=== PATIENT | female | born 1945 | race Caucasian/White ===

== ENCOUNTER → 2016-05-07 | Outpatient (CLI) | payer OTHER ==
[~2016-05-07] MED LIST: CHOL1000 PO; ENOX80IN SQ; METH10TA6 PO; METO50TA16 PO; OXYC-57 PO; WARF2.5T8 PO; WARF5TAB7 PO
[2016-05-07 13:45] LABS: BLOOD UREA NITROGEN 24 mg/dl (7-18); GLUCOSE 90 mg/dl (70-99)
[2016-05-07 13:46] LABS: ALT/SGPT 14 U/L (12-78); AST/SGOT 16 U/L (15-37); BUN/CREATININE RATIO 18.2 (10-20); CALCIUM 9.1 mg/dl (8.5-10.1); CARBON DIOXIDE 27 mmol/L (21-32); CHLORIDE 110 mmol/L (98-107); CHOLESTEROL 204 mg/dl (0-200); SODIUM 147 mmol/L (136-145); TRIGLYCERIDES 142 mg/dl (0-150); VERY LOW DENSITY LIPOPROT CALC 28 mg/dl
[2016-05-07 13:49] LABS: CHOLESTEROL/HDL RATIO 4.1; HDL CHOLESTEROL 50 mg/dl; LDL CHOLESTEROL CALCULATED 126 mg/dl
--- NOTE | 2016-05-11 10:12 | CODING QUERY MEDICAL NECESSITY ---
SUPPORTING DIAGNOSIS NEEDED A supporting diagnosis is required for the test/procedure performed on this patient in order for us to be reimbursed by the patient's insurance. Please provide a supporting diagnosis for the following test/procedure listed below next to the test name along with your signature. *If there is no additional diagnosis for this patient that would support the following test/procedure please document that below next to the test/procedure. Test(s)/Procedure(s) that require a supporting diagnosis: * VIT B-12 LEVEL DIAGNOSIS: * FOLATE LEVEL DIAGNOSIS: * DOS: 05/07/16 Provider Signature: Date: Thank you Monse Rojo Health Information Management Once completed, please kindly fax back to [phone] For questions please call [phone]
== END | disposition home or self-care (01) ==
LOC: C.LABMFLN 08:41
PROVIDERS: ATTEND Family Medicine
DX: I10 Essential (primary) hypertension (principal); E55.9 Vitamin D deficiency, unspecified; I82.509 Chronic embolism and thrombosis of unspecified deep veins of unspecified lower extremity; E05.90 Thyrotoxicosis, unspecified without thyrotoxic crisis or storm; G62.9 Polyneuropathy, unspecified; D64.9 Anemia, unspecified

== ENCOUNTER → 2016-10-10 | Outpatient (CLI) | payer OTHER ==
[2016-10-10 13:08] LABS: INR 3.3 (0.9-1.1); PROTHROMBIN TIME (PATIENT) 36.7 SECONDS (9.0-12.0)
[2016-10-10 13:52] LABS: BLOOD UREA NITROGEN 19 mg/dl (7-18); BUN/CREATININE RATIO 14.8 (10-20); CALCIUM 8.9 mg/dl (8.5-10.1); CARBON DIOXIDE 26 mmol/L (21-32); CHLORIDE 111 mmol/L (98-107); GLUCOSE 90 mg/dl (70-99); POTASSIUM 3.7 mmol/L (3.5-5.1); SODIUM 146 mmol/L (136-145)
[2016-10-10 14:17] LABS: CHOLESTEROL 169 mg/dl (0-200); CHOLESTEROL/HDL RATIO 4.8; HDL CHOLESTEROL 35 mg/dl; LDL CHOLESTEROL CALCULATED 99 mg/dl; THYROID STIMULATING HORMONE 0.161 uIu/ml (0.300-4.500); TRIGLYCERIDES 175 mg/dl (0-150); VERY LOW DENSITY LIPOPROT CALC 35 mg/dl
--- NOTE | 2016-10-16 09:39 | CODING QUERY MEDICAL NECESSITY ---
SUPPORTING DIAGNOSIS NEEDED A supporting diagnosis is required for the test/procedure performed on this patient in order for us to be reimbursed by the patient's insurance. Please provide a supporting diagnosis for the following test/procedure listed below next to the test name along with your signature. *If there is no additional diagnosis for this patient that would support the following test/procedure please document that below next to the test/procedure. Test(s)/Procedure(s) that require a supporting diagnosis: * VITAMIN D, 25-HYDROXY DIAGNOSIS: Provider Signature: Date: Thank you Francoise Oates [employer] Once completed, please kindly fax back to [phone] For questions please call [phone]
== END | disposition home or self-care (01) ==
LOC: C.LABMFLN 10:00
PROVIDERS: ATTEND Physician Assistant
DX: I10 Essential (primary) hypertension (principal); I82.509 Chronic embolism and thrombosis of unspecified deep veins of unspecified lower extremity; E78.5 Hyperlipidemia, unspecified; I80.00 Phlebitis and thrombophlebitis of superficial vessels of unspecified lower extremity; R82.90 Unspecified abnormal findings in urine; E55.9 Vitamin D deficiency, unspecified

== ENCOUNTER → 2016-11-14 | Outpatient (CLI) | payer OTHER ==
[2016-11-14 13:49] LABS: THYROID STIMULATING HORMONE 1.23 uIu/ml (0.300-4.500)
== END | disposition home or self-care (01) ==
LOC: C.LABMFLN 10:50
PROVIDERS: ATTEND Family Medicine
DX: E78.5 Hyperlipidemia, unspecified (principal); I82.509 Chronic embolism and thrombosis of unspecified deep veins of unspecified lower extremity

== ENCOUNTER → 2016-11-26 | Outpatient (CLI) | payer OTHER ==
--- NOTE | 2016-11-26 14:46 | MAMMOGRAPHY REPORT ---
BILATERAL DIGITAL DIAGNOSTIC MAMMOGRAM TOMOSYNTHESIS WITH CAD AND TARGETED BILATERAL ULTRASOUND: 2016 CLINICAL HISTORY: 71-year-old woman presents for annual bilateral mammograms and also a new area of p ain and thickening in the 10:00 to 11:00 left breast. She reports dull/aching intermittent focal earl n in the left 11:00 axis for one month or less, and the area of thickening for around 1 week. No ski n erythema or nipple discharge. No family history of breast cancer. TECHNIQUE: Bilateral breast tomosynthesis in addition to standard 2D mammography was performed. Curre nt study was also evaluated with a Computer Aided Detection (CAD) system. COMPARISON: Comparison is made to exams dated: 06/15/2015 mammogram - [facility], mammogram, 05/26/2013 mammogram - [facility], 11/10/2008 mammogram, 11/11/2007 mammogram, and 10/25/2005 mammogram - [facility]. BREAST COMPOSITION: There are scattered areas of fibroglandular density in both breasts. FINDINGS: A triangular skin palpable marker overlies the 11:00 middle to posterior left breast, desire ting the focal pain and thickening pointed out by the patient. There is no obvious new mass, archite ctural distortion or cluster of microcalcifications in the left breast near the area of concern or el sewhere throughout the remainder of the breast. There are a few benign coarse popcorn and rim calcif ications. There are scattered benign-appearing round and punctate microcalcifications in the right breast. A l obulated, 18 x 8 mm mass in the lower outer middle one third of the right breast is stable comparing back to the 2015, 2013 and 2011 mammograms. However, there is a new focal asymmetry measuring 9 x 14 mm in the upper outer middle one third of the right breast, for which further evaluation with ultras ound was performed. There is possible associated architectural distortion on the CC tomosynthesis im ages. No associated microcalcification. No other obvious mass, asymmetry, distortion or suspicious calcifications are seen throughout the remainder of the right breast. Targeted ultrasound was performed in the area of concern pointed out by the patient, within the 10:30 left breast, 6-7 cm from the nipple. There is sonographically normal tissue without evidence of a d iscrete solid or cystic mass. In the right 9:00 breast, 5 cm from the nipple, there is a taller than wide hypoechoic solid mass with indistinct borders measuring approximately 8.6 x 6.2 x 9.6 mm. This corresponds in shape and location as the mammographic asymmetry and is suspicious for malignancy. D efinitive characterization with ultrasound guided core biopsy is recommended. In the 8:00 right breast, 7 cm from the nipple, there is a grouping of anechoic cyst versus focal narinder t ectasia, measuring approximately 1.7 x 0.7 x 3.3 cm. This likely correlates with the stable asymme try in the lower outer middle one third of the right breast. IMPRESSION: ACR BI-RADS CATEGORY 4C: MODERATE SUSPICION FOR MALIGNANCY, TARGETED ULTRASOUND ACR BI-R ADS CATEGORY 4C: MODERATE SUSPICION FOR MALIGNANCY 1. Ultrasound guided core biopsy is recommended for a hypoechoic solid taller than wide mass with in distinct borders measuring 9.6 mm in the 9:00 right breast, thought to correlate with the new focal m ammographic asymmetry. 2. There is no suspicious mammographic or targeted sonographic abnormality in the 10:30 to 11:00 lef t breast, to correlate with the focal pain and thickening pointed out by the patient. Therefore, cli nical follow-up is recommended, as biopsy of a clinically suspicious mass should not be precluded by negative imaging. 3. A stable asymmetry versus partially circumscribed mass in the lower outer middle one third of the right breast is thought to correlate with a grouping of anechoic benign cyst versus benign focal narinder t ectasia in the 8:00 right breast on ultrasound. These results and recommendations were discussed with the patient at the time of the exam. She shoul d remain on Coumadin as per usual prior to the biopsy. Approximately 10% of breast cancers are not detected with mammography. A negative mammographic report should not delay biopsy if a clinically suggestive mass is present. Deandra Armenta M.D. ay/:11/26/2016 10:13:04 Clinical Researcher: Jennifer HOOKER(Edis)(Paolo), [facility] letter sent: Abnormal 4/5 BI-RADS Code: ACR BI-RADS Category 4C: Moderate Suspicion For Malignancy Ultrasound BI-RADS: ACR BI- RADS Category 4C: Moderate Suspicion For Malignancy
== END | disposition home or self-care (01) ==
LOC: C.MAMM 09:23
PROVIDERS: ATTEND Family Medicine
DX: N63 Unspecified lump in breast (principal)

== ENCOUNTER → 2016-12-03 | Outpatient (CLI) | payer OTHER ==
--- NOTE | 2016-12-03 09:43 | Discharge Instructions ---
Discharge Instructions Procedure Procedure Date: Dec 03, 2016. Reason for visit: Right Mass. Discharge Discharge Date: Dec 03, 2016. Discharge Diagnosis: post right breast ultrasound guided core biopsy Medications Restart Stopped Medication(s): Continue Coumadin as per usual Instructions Activity Recommendations: Additional Limitations (see below) Return to School/Work: no limitations Recommended Home Diet: No Limitations Provider Instructions: ACTIVITY RECOMMENDATIONS: * No lifting, pushing, pulling or exercising the affected side for three days. RETURN TO SCHOOL/WORK: * You may return to work/school after the procedure, but do not perform any strenuous activities for 24 to 48 hours. MEDICATIONS: * Tylenol (two 325 mg) every four to six hours if needed for mild pain (if not allergic to Tylenol). DIET: * Resume previous diet. SPECIAL CARE INSTRUCTIONS: * Keep biopsy site dry for 24 hours. May shower after 24 hours, but do not soak (bathe) incision. * May remove Tegaderm (plastic patch) tomorrow AFTER showering. * Leave the steri-strips on for one week. Allow the steri-strips to fall off by themselves. If not off after one week, you may remove them. You may place a Bandaid crosswise over the strips, if desired. * Apply ice 10 minutes on and 10 minutes off as needed. * Wear a bra at bedtime to sleep more comfortably for 2-3 days. * Your referring physician should have the results after approximately 5 to 7 business days. * Call for unusual bleeding, fever, drainage, etc or if you have any questions call [phone] during normal business hours or after hours call Dr Armenta, . FOLLOW UP VISIT: Follow-up with Referring Physician as scheduled. Allergies Uncoded Allergies: CONTROL PILLS (Allergy, Unknown, DVT, 11/21/16) Brandon Angeles Recommendations: Call your doctor if: * Temperature above 101 degrees * Pain not relieved by pain medicine ordered * There is increased drainage or redness from any incision * You have any unanswered questions or concerns. Your Doctors Instructions noted above were prepared by provider Deandra Armenta. Patient Signature Section: Patient Instructions Signature Page Bree Weller Patient (or Guardian) Signature/Date: I have read and understand the instructions given to me by my caregivers. Caregiver/RN/Doctor Signature/Date: The above-named patient and/or guardian has received patient instructions on this date. + Original Patient Signature Page (only) stays with chart. Please make copy for patient.
--- NOTE | 2016-12-03 14:32 | MAMMOGRAPHY REPORT ---
THIS REPORT HAS BEEN AMENDED. ULTRASOUND GUIDED BIOPSY RIGHT BREAST: 12/03/2016 CLINICAL HISTORY: Suspicious hypoechoic solid mass/focal asymmetry in the 9:00 right breast. Patient presents for ultrasound guided core biopsy. COMPARISON: Comparison is made to exams dated: 11/26/2016 ultrasound, 11/26/2016 mammogram, 06/15/2015 ma mmogram - [facility], 05/26/2013 mammogram, 05/26/2013 mammogram - [facility], and mammogram - [facility]. PATIENT CONSENT: The procedure, risks and benefits were discussed with the patient and informed conse nt was obtained both verbally and in writing. Specific risks to this procedure include: bleeding, in fection, puncture of adjacent structure, nontarget biopsy, sampling error, pain, metal allergy and me dication reaction. PROCEDURE DESCRIPTION: A time out was performed and the right breast was agreed as the site of biopsy . The skin was prepped and draped in the usual sterile fashion. The hypoechoic solid mass in the 9:00 right breast was chosen as the target for biopsy. Subcutaneous and intraparenchymal 1% buffered lido maria esther, with and without epinephrine, was administered as local anesthesia. A skin incision was made. Through the incision, 5 samples were taken with a 14 gauge Achieve biopsy device. A ribbon shaped me tallic marker was placed at the biopsy site. Hemostasis was achieved after manual compression. The pa tient tolerated the procedure well and there was no immediate complication. The samples were sent to the pathology department in an appropriately labeled container. After the biopsy in the right 9:00 breast, repeat targeted ultrasound was performed in the 10:00 left breast in the area of pain and mass pointed out by the patient. Should be noted that the patient wa s no longer able to feel the mass but pointed out the area of previous pain. Postprocedure right CC and ML tomosynthesis images were obtained. A new ribbon-shaped metallic biops y marker is seen in the 9:00 middle one third of the right breast, aligning with the focal asymmetry in question. There is mild 1 cm hematoma at the biopsy site. IMPRESSION: ULTRASOUND GUIDED BIOPSY 1. Status post ultrasound-guided core biopsy of an indeterminate mass/focal asymmetry in the 9:00 ri ght breast, with biopsy marker placed at the site. 2. The patient is no longer able to feel the lump in the 10:00 left breast but was able to point out the area of pain and where the lump was previously located. Ultrasound was again negative/normal an d not location. However, the patient reported that her physician would also like this area sampled. I discussed that imaging remains negative in the area of concern, therefore it would not be amenable to image guided biopsy. Could consider fine-needle aspiration based on palpation in the pathology d epartment. 3. The patient will receive notification of the biopsy results from her referring physician. Deandra Armenta M.D. ay/:12/03/2016 10:03:12 Spooler Operator: Nidia PADILLA (R)), [facility] AMENDMENT: 12/12/2016 Deandra Armenta M.D. 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 It contains both ductal and lobular features. The pathology results are concordant with the imaging appearance. Would also consider fine-needle aspiration based on palpation in the pathology department, if the pat ient can still palpate any abnormality in the upper inner quadrant of the left breast. It should be noted that no new new suspicious mammographic or sonographic findings were identified in this area on prior diagnostic workup.
--- NOTE | 2016-12-03 14:32 | MAMMOGRAPHY REPORT ---
UNILATERAL RIGHT DIGITAL DIAGNOSTIC MAMMOGRAM TOMOSYNTHESIS: 12/03/2016 CLINICAL HISTORY: Status post ultrasound guided core biopsy of a suspicious focal asymmetry/mass in t he 9:00 right breast. Please refer to the report from right breast ultrasound guided core biopsy performed at the same time for full detail. IMPRESSION: POST PROCEDURE IMAGING FOR MARKER PLACEMENT Please refer to the report from right breast ultrasound guided core biopsy performed at the same time for full detail. Approximately 10% of breast cancers are not detected with mammography. A negative mammographic report should not delay biopsy if a clinically suggestive mass is present. Deandra Armenta M.D. ay/:12/03/2016 09:44:38 Skirt Trimmer: Nidia KAISER)(Paolo), [facility] BI-RADS Code: Post Procedure Imaging For Marker Placement
== END | disposition home or self-care (01) ==
LOC: C.MAMM 08:40
PROVIDERS: ATTEND Family Medicine
DX: R92.8 Other abnormal and inconclusive findings on diagnostic imaging of breast (principal); N63 Unspecified lump in breast; C50.911 Malignant neoplasm of unspecified site of right female breast

== ENCOUNTER → 2016-12-10 | Day surgery (SDC) | payer OTHER ==
[2016-11-21 13:10] VITALS: Ht 170.2 cm; Wt 86.4 kg
[~2016-12-10] VITALS: Ht 170.2 cm; Wt 86.4 kg
[~2016-12-10] MED LIST changes: +500ML BSS 0.3ML EPI 1:1000PF IRRIG ONE; +ACETAMINOPHEN 325 MG TAB PO PRN; +AMVISC PLUS 0.8ML SYRINGE INT OCU ONE; +ATROPINE SULFATE 0.1 MG/ML 5ML SYR IV PRN; +BRIMONIDINE TART 0.2% OP SOLN PER DROP CHARGE ONE; +BSS FLUSH ONE; +ENDOCOAT 0.85ML SYRINGE INT OCU ONE; +EpHEDrine SULFATE INJ 50 MG/ML AMP IV PRN; +EpINEphrine INJ 1MG/ML AMP 1 MG/ML AMP ONE; +FENTANYL CITRATE INJ 50 MCG/1 ML 2 ML VIAL ONE; +LACTATED RINGER'S 1000ML 500 ML IV SCH; +LIDOCAINE 4% OP SOLN DROP CHARGE ONE; +LIDOCAINE 4% OP SOLN DROP CHARGE OPR SCH; +LIDOCAINE HCL 1% MPF 2 ML VIAL ONE; +MIDAZOLAM HCL 1 MG/ML 2ML VIAL ONE; +MOXIFLOXACIN OPH SOLN PER DROP CHARGE ONE; +ONDANSETRON INJ 2 MG/ML 2 ML VIAL IV PRN; +POVIDONE-IODINE OP SOLN 30 ML BTL ONE; +PROPARACAINE 0.5% OP SOLN PER DROP CHARGE OPR SCH; +TOBRAMYCIN/DEXAMETHASONE OPH OINT PER APPLN CHARGE ONE
[2016-12-10] MEDS: PHENYLEPHRINE HCL 2.5% OP SOLN PER DROP CHARGE OPR SCH ×2 (08:21→08:26)
[2016-12-10] MEDS: TROPICAMIDE 1% OP SOLN PER DROP CHARGE OPR SCH ×2 (08:22→08:27)
[2016-12-10] MEDS: CYCLOPENTOLATE HCL 1% OP SOLN PER DROP CHARGE OPR SCH ×2 (08:23→08:28)
[2016-12-10] MEDS: KETOROLAC 0.5% OP SOLN PER DROP CHARGE OPR SCH ×2 (08:24→08:29)
[2016-12-10] MEDS: MOXIFLOXACIN OPH SOLN PER DROP CHARGE OPR SCH ×2 (08:25→08:35)
--- NOTE | 2016-12-10 08:38 | History & Physical Bridge - SC ---
H&P Re-Evaluation Bridge Note: I have examined the patient, reviewed the History & Physical and in the interval since the performance of the History & Physical I have noted the following changes of clinical significance: Patient recently diagnosed with breast cancer
[2016-12-10 09:32] VITALS: TEMP 36.5
--- NOTE | 2016-12-10 09:32 | Discharge Instructions-SurgCtr ---
Discharge Instructions Date of Service Dec 10, 2016. Visit Reason for Visit: Cataract Right Eye Discharge Discharge Diagnosis / Problem: cataract right eye Discharge Goals Goal(s): Improve function Activity Recommendations Activity Limitations: per Instructions/Follow-up section Lifting Limitations: no more than 5 pounds Anesthesia . Post Anesthesia Instructions: If you have had General Anesthesia or IV Sedation: * Do not drive today. * Resume driving when surgeon permits. * Do not make important decisions or sign legal documents today. * Call surgeon for: 1. Temperature elevations greater than 101 degrees F. 2. Uncontrollable pain. 3. Excessive bleeding. 4. Persistent nausea and vomiting. 5. Medication intolerance (nausea, vomiting or rash). * For nausea and vomiting use only clear liquids such as: tea, soda, bouillon until nausea subsides, then gradually increase diet as tolerated. * If you have any concerns or questions, call your surgeon's office. If physician is unavailable and it is an emergency, call 911 or go to the nearest emergency room. . Instructions / Follow-Up Instructions / Follow-Up ACTIVITY RECOMMENDATIONS: * Light activities * You may walk outside, read, watch television. * Mild irritation and blurred vision are common for the first few days, redness around the white part of the eye is common. MEDICATIONS: Resume previous medications unless instructed otherwise by your surgeon. Eye drops (today and tomorrow): Cipro - one drop in operative eye every 2 hours while awake Prednisolone 1% - one drop in operative eye every 2 hours while awake Ketorolac - one drop in operative eye every 2 hours while awake SPECIAL CARE INSTRUCTIONS: * If any problems or concerns, please call Dr. Dangelo's office at . * Keep plastic shield taped over eye to sleep at night. * Keep plastic shield taped over eye except to administer eye drops. * Keep plastic shield on until office visit the following day. FOLLOW UP VISIT: Follow-up with Dr. Dangelo in the [place] office as scheduled. If not already scheduled, please call the office at . Diet Recommendations Home Diet: resume previous diet Procedures Procedures Performed: Right Cataract Phacoemulsification With Intraocular Lens Implant Pending Studies Studies pending at discharge: no Medical Emergencies . Who to Call and When: Medical Emergencies: If at any time you feel your situation is an emergency, please call 911 immediately. . Non-Emergent Contact Non-Emergency issues call your: Format Proofreader . . "Provider Documentation" section prepared by Kevyn Dangelo. .
--- NOTE | 2016-12-10 09:33 | [facility] Operative Report ---
Operative Report Operative Date Dec 10, 2016. Pre-Operative Diagnosis Cataract Right Eye Post-Operative Diagnosis same as preop Procedure(s) Performed Right Cataract Phacoemulsification With Intraocular Lens Implant Surgeon Dr. Dangelo Philatelic Consultant Surgeon(s) none Estimated Blood Loss 0ml Findings cataract right eye Fluids (cc crystalloids) see anesthesia record Specimens none Drains none Anesthesia loacl with sedation Complication(s) None Disposition Recovery Room / PACU Implants mx60 21.0 Indications decreased vision right eye Description of Procedure After informed consent was obtained in the holding area the patient was wheeled back to the operating room where cardiac monitoring leads and oxygen by nasal cannula was administered by Anesthesia. Gentle IV sedation was given, and the patient's right eye was prepped and draped in usual sterile fashion. A wire lid speculum was placed into the right eye and the operating microscope was swung into position. Using 0.12 forceps and a Supersharp blade a paracentesis port was made 2 o'clock hours away from the 9 o'clock position of the patient's right eye. 1% non-preserved Lidocaine was then injected into the anterior chamber for anesthesia. A 2.0 mm keratotome blade was then used to make a shelved clear corneal incision at the 9 o'clock position of the right eye. Amvisc was injected into the anterior chamber and a cystotome and Utrata forceps were used to perform a curvilinear capsulorrhexis. BSS on a hydrodissection cannula was used to hydrodissect the lens nucleus away from the capsular bag. The phacoemulsification handpiece was then used in a stop and chop fashion to remove the lens nucleus. The irrigation and aspiration handpiece was then used to remove the residual cortical material. Amvisc was injected into the capsular bag and anterior chamber and a Bausch [employer] Lomb MX60 21.0 Diopter intraocular lens was injected into the capsular bag. Irrigation and aspiration handpiece was used to remove the residual viscoelastic material. The wounds were hydrated and noted to be watertight. The wire lid speculum was removed from the eye. Vigamox, Brimonidine, and TobraDex ointment were placed on the eye and it was shielded. It should be noted that EndoCoat was used extensively during the case to protect the cornea endothelium. DISPOSITION: The patient tolerated the procedure well and was wheeled to the post anesthesia care unit in stable condition. I attest to the content of the Intraoperative Record and any orders documented therein. Any exceptions are noted below. I attest to the content of the Intraoperative Record and any orders documented therein. Any exceptions are noted below.
--- NOTE | 2016-12-10 09:55 | Anesthesia Progress Nt - [facility] ---
Anesthesia Post Op Note Date & Time Dec 10, 2016 at 09:55 Vital Signs Pain Intensity: 0 Vital Signs Past 12 Hours Date Time Temp Pulse Resp B/P (MAP) Pulse Ox O2 Delivery O2 Flow Rate FiO2 12/10/16 09:32 36.5 53 12 139/76 (97) 95 Room Air 12/10/16 08:11 36.9 46 22 165/77 (106) 97 Room Air Notes Mental Status: alert / awake / arousable, participated in evaluation Pt Amnestic to Procedure: Yes Nausea / Vomiting: adequately controlled Pain: adequately controlled Airway Patency, RR, SpO2: stable & adequate BP & HR: stable & adequate Hydration State: stable & adequate Anesthetic Complications: no major complications apparent
[2016-12-10 09:59] VITALS: BP 166/78; PULSE 56; O2SAT 96
== END | disposition home or self-care (01) ==
LOC: X.SURG 07:39
PROVIDERS: ATTEND Ophthalmology
DX: H25.11 Age-related nuclear cataract, right eye (principal); I10 Essential (primary) hypertension; E03.9 Hypothyroidism, unspecified; M19.90 Unspecified osteoarthritis, unspecified site; Z86.718 Personal history of other venous thrombosis and embolism; Z79.01 Long term (current) use of anticoagulants; Z79.899 Other long term (current) drug therapy

== ENCOUNTER → 2016-12-26 | Outpatient (CLI) | payer OTHER ==
[~2016-12-26] MED LIST changes: -500ML BSS 0.3ML EPI 1:1000PF IRRIG ONE; -ACETAMINOPHEN 325 MG TAB PO PRN; -AMVISC PLUS 0.8ML SYRINGE INT OCU ONE; -ATROPINE SULFATE 0.1 MG/ML 5ML SYR IV PRN; -BRIMONIDINE TART 0.2% OP SOLN PER DROP CHARGE ONE; -BSS FLUSH ONE; -ENDOCOAT 0.85ML SYRINGE INT OCU ONE; -EpHEDrine SULFATE INJ 50 MG/ML AMP IV PRN; -EpINEphrine INJ 1MG/ML AMP 1 MG/ML AMP ONE; -FENTANYL CITRATE INJ 50 MCG/1 ML 2 ML VIAL ONE; -LACTATED RINGER'S 1000ML 500 ML IV SCH; -LIDOCAINE 4% OP SOLN DROP CHARGE ONE; -LIDOCAINE 4% OP SOLN DROP CHARGE OPR SCH; -LIDOCAINE HCL 1% MPF 2 ML VIAL ONE; -MIDAZOLAM HCL 1 MG/ML 2ML VIAL ONE; -MOXIFLOXACIN OPH SOLN PER DROP CHARGE ONE; -ONDANSETRON INJ 2 MG/ML 2 ML VIAL IV PRN; -POVIDONE-IODINE OP SOLN 30 ML BTL ONE; -PROPARACAINE 0.5% OP SOLN PER DROP CHARGE OPR SCH; -TOBRAMYCIN/DEXAMETHASONE OPH OINT PER APPLN CHARGE ONE
[2016-12-26 13:21] LABS: PARTIAL THROMBOPLASTIN RATIO 1.4
[2016-12-26 13:25] LABS: BASO % 0.6 %; BASO ABS # 0.03 K/uL (0-0.2); COMPLETE YES; EOS % 2.6 %; HEMATOCRIT 40.9 % (37-47); LYMPH % 21.2 %; LYMPH ABS # 1.08 K/uL (1.2-3.4); MEAN CELL VOLUME 88.5 fL (80-100); MEAN CORPUSCULAR HEMOGLOBIN 28.8 pg (25-34); MEAN CORPUSCULAR HGB CONC 32.5 g/dl (32-36); MEAN PLATELET VOLUME 9.7 fL (7.4-10.4); MONO % 6.1 %; NEUT % 69.5 %; PLATELET COUNT 163 K/uL (130-400); RED BLOOD COUNT 4.62 M/uL (4.2-5.4); WHITE BLOOD COUNT 5.09 K/uL (4.8-10.8)
[2016-12-26 14:34] LABS: BLOOD UREA NITROGEN 23 mg/dl (7-18); BUN/CREATININE RATIO 17.5 (10-20); CARBON DIOXIDE 29 mmol/L (21-32); CHLORIDE 110 mmol/L (98-107); GLUCOSE 81 mg/dl (70-99); POTASSIUM 4.2 mmol/L (3.5-5.1); SODIUM 142 mmol/L (136-145)
== END | disposition home or self-care (01) ==
LOC: C.LABMFLN 08:53
PROVIDERS: ATTEND Family Medicine
DX: I10 Essential (primary) hypertension (principal); I82.509 Chronic embolism and thrombosis of unspecified deep veins of unspecified lower extremity; E05.90 Thyrotoxicosis, unspecified without thyrotoxic crisis or storm; C50.919 Malignant neoplasm of unspecified site of unspecified female breast

== ENCOUNTER → 2016-12-28 | Outpatient (CLI) | payer OTHER ==
--- NOTE | 2016-12-28 10:00 | DIAGNOSTIC IMAGING REPORT ---
CHEST 2 VIEWS ROUTINE CLINICAL HISTORY: Preoperative evaluation. Breast cancer. COMPARISON STUDY: No previous studies for comparison. FINDINGS: The lung volumes are normal. No pneumothorax or pleural effusion is present. No consolidation is identified. Mild cardiomegaly is noted. Pulmonary vascularity is normal. IMPRESSION: 1. No acute cardiopulmonary findings. 2. Mild cardiomegaly. Electronically signed by: Ryan Munoz M.D. 12/28/2016 9:59 AM Dictated Date/Time: 12/28/2016 9:58 AM
== END | disposition home or self-care (01) ==
LOC: C.RAD1850 09:38
PROVIDERS: ATTEND Surgery
DX: Z01.811 Encounter for preprocedural respiratory examination (principal); C50.919 Malignant neoplasm of unspecified site of unspecified female breast

== ENCOUNTER 2017-01-09 08:03 | Day surgery (SDC) | payer OTHER ==
[2017-01-04 10:10] VITALS: Ht 170.2 cm; Wt 86.4 kg
[~2017-01-09] VITALS: Ht 170.2 cm; Wt 86.4 kg
[~2017-01-09 08:03] MED LIST changes: +LACTATED RINGER'S 1000ML 1,000 ML IV SCH; -OXYC-57 PO
[2017-01-09 11:13] LABS: INR 1.1 (0.9-1.1); PROTHROMBIN TIME (PATIENT) 11.7 SECONDS (9.0-12.0)
--- NOTE | 2017-01-09 11:27 | DIAGNOSTIC IMAGING REPORT ---
LYMPHOSCINTIGRAPHY CLINICAL HISTORY: Right-sided breast cancer. PROCEDURE: Using standard sterile technique, 4 periareolar intradermal and one deep injection of 0.499 mCi of Lymphoseek was placed in the right breast. The patient tolerated the procedure well. There were no immediate complications. Static images were acquired at 15, 30, and 45 minutes. A right axillary lymph node was marked for the surgeon. The patient was subsequently transported to the surgical suite. IMPRESSION: 1. Injection of 0.499 mCi of Lymphoseek in the right breast. 2. Imaging was performed and a right axillary node was marked for the surgeon. Electronically signed by: Nilo Chaves M.D. 01/09/2017 11:25 AM Dictated Date/Time: 01/09/2017 11:21 AM
[2017-01-09] MEDS ORDERED: CEFAZOLIN IV 2,000 MG/60 ML D5W IV ONE (11:41)
[2017-01-09] MEDS ORDERED: CEFAZOLIN IV 2,000 MG in DEXTROSE 5% 50ML IV SCH (12:00)
--- NOTE | 2017-01-09 12:00 | History & Physical Bridge Note ---
H&P Re-Evaluation Bridge Note: I have examined the patient, reviewed the History & Physical and in the interval since the performance of the History & Physical I have noted the following changes of clinical significance: After meeting with radiation oncology, patient elected for breast conservation therapy. Plan for right breast wire localized lumpectomy with right axillary sentinel lymph node biopsy. Coumadin stopped, INR 1.1, last dose lovenox >24 hours ago. Wire placed and nuc med injection performed, films reviewed. Risks reviewed, questions answerd. No other changes noted
[2017-01-09] MEDS ORDERED: ONDANSETRON INJ 2 MG/ML 2 ML VIAL ONE (12:10)
[2017-01-09] MEDS ORDERED: PROPOFOL IV EMULSION 10 MG/ML 20 ML VIAL IV ONE (12:10)
[2017-01-09] MEDS ORDERED: FENTANYL CITRATE INJ 50 MCG/1 ML 2 ML VIAL ONE ×2 (12:10→13:09)
[2017-01-09] MEDS ORDERED: DEXAMETHASONE SOD INJ 4 MG/ML VIAL ONE (12:10)
[2017-01-09] MEDS ORDERED: MIDAZOLAM HCL 1 MG/ML 2ML VIAL ONE (12:10)
[2017-01-09] MEDS ORDERED: LIDOCAINE HCL 2% 2 ML VIAL (20MG/ML) ONE (12:10)
[2017-01-09] MEDS ORDERED: FENTANYL CITRATE INJ 50 MCG/1 ML 2 ML VIAL IV PRN (12:15)
[2017-01-09] MEDS ORDERED: EpHEDrine SULFATE INJ 50 MG/ML AMP IV PRN (12:15)
[2017-01-09] MEDS ORDERED: ATROPINE SULFATE 0.1 MG/ML 5ML SYR IV PRN (12:15)
[2017-01-09] MEDS ORDERED: ONDANSETRON INJ 2 MG/ML 2 ML VIAL IV PRN ×2 (12:15→14:15)
[2017-01-09] MEDS ORDERED: BUPIVACAINE 0.5 % 5 MG/1 ML MPF 30ML VIAL ONE (12:19)
[2017-01-09] MEDS ORDERED: LACTATED RINGER'S 1000ML 1,000 ML IV SCH (14:11)
--- NOTE | 2017-01-09 14:11 | [facility] Post Operative Brief Note ---
Immediate Operative Summary Operative Date Jan 09, 2017. Pre-Operative Diagnosis Right Breast Cancer Post-Operative Diagnosis same as preop Procedure(s) Performed Right Breast Lumpectomy with Needle Localization and Right [place] Lymph Node Biopsy Surgeon Dr. Krishna Jo Nursery Laborer Surgeon(s) Franck Muller PA-C Estimated Blood Loss 4ML Findings 2-3 sentinel lymph nodes excised, highest reading on gamma probe ~1200 ex vivo, axilla silent after excision. Right breast lumpectomy performed, excision of specimen confirmed by mammography. Good hemostasis, lumpectomy site injected with sterile injectable saline for cosmesis. Specimens A. [place] Lymph nodes B. Right breast, short superior, long lateral, double stitch deep margin, wire anterior Drains None Anesthesia GETA Complication(s) None Disposition Recovery Room / PACU
[2017-01-09] MEDS ORDERED: OXYC-57 PO (14:14)
[2017-01-09] MEDS ORDERED: MoRPHine SULFATE 2 MG/ML CARP IV PRN (14:15)
[2017-01-09] MEDS ORDERED: OXYCODONE/ACETAMINOPHEN 5-325 TAB PO PRN (14:15)
--- NOTE | 2017-01-09 14:17 | Discharge Instructions ---
Discharge Instructions Date of Service Jan 09, 2017. Visit Reason for Visit: Right Breast Cancer W/Hosp Loc & Nm Lymph Scan Discharge Discharge Diagnosis / Problem: right breast lumpectomy, sentinel lymph node biopsy Discharge Goals Goal(s): Improve disease control Activity Recommendations Activity Limitations: as noted below Lifting Limitations: no more than 10 pounds Shower/Bathe: tomorrow Anesthesia . Post Anesthesia Instructions: If you have had General Anesthesia or IV Sedation: * Do not drive today. * Resume driving when surgeon permits. * Do not make important decisions or sign legal documents today. * Call surgeon for: 1. Temperature elevations greater than 101 degrees F. 2. Uncontrollable pain. 3. Excessive bleeding. 4. Persistent nausea and vomiting. 5. Medication intolerance (nausea, vomiting or rash). * For nausea and vomiting use only clear liquids such as: tea, soda, bouillon until nausea subsides, then gradually increase diet as tolerated. * If you have any concerns or questions, call your surgeon's office. If physician is unavailable and it is an emergency, call 911 or go to the nearest emergency room. . Instructions / Follow-Up Instructions / Follow-Up Dr. Jo in approx 10 days, call [phone] to schedule Wear surgical or sports bra day and night until follow-up Ok to start Lovenox tomorrow Diet Recommendations Recommended Home Diet: no limitations Procedures Procedures Performed: Right Breast Lumpectomy with Needle Localization and Right [place] Lymph Node Biopsy Pending Studies Studies pending at discharge: yes List of pending studies: pathology Medical Emergencies . Who to Call and When: Medical Emergencies: If at any time you feel your situation is an emergency, please call 911 immediately. . Non-Emergent Contact Non-Emergency issues call your: Surgeon Call Non-Emergent contact if: you have a fever, temperature is above 101.5, your pain is not controlled, wound has increased pain, you have any medication questions . . "Provider Documentation" section prepared by Franck Muller. .
--- NOTE | 2017-01-09 14:30 | [facility] Operative Report ---
Operative Report Operative Date Jan 09, 2017. Pre-Operative Diagnosis Right Breast Cancer Post-Operative Diagnosis right breast cancer Procedure(s) Performed right breast wire localized lumpectomy, right axillary sentinel lymph node biopsy Surgeon Dr. Krishna Jo Soap Worker Surgeon(s) Franck Muller PA-C Estimated Blood Loss 4ML Findings 2-3 sentinel lymph nodes excised, highest reading on gamma probe ~1200 ex vivo, axilla silent after excision. Right breast lumpectomy performed, excision of specimen confirmed by mammography. Good hemostasis, lumpectomy site injected with sterile injectable saline for cosmesis. Specimens A. [place] Lymph nodes B. Right breast, short superior, long lateral, double stitch deep margin, wire anterior Drains None Anesthesia GETA Complication(s) None Disposition Recovery Room / PACU Indications 71 year old female with right breast cancer, after discussion of her options, she elected for breast conservation therapy. Plan for right breast wire localized lumpectomy with right axillary sentinel lymph node biopsy. The risks of the procedure were discussed, all questions were answered, and the patient agreed to proceed with surgery as planned. Description of Procedure The patient had a localization wire placed in radiology prior to surgery. She also underwent sentinel lymph node injection with nuclear medicine. The films were reviewed for incisional planning, and the gamma probe was used to confirm uptake in the axilla. The patient was properly identified, consented, and taken to the operating room where she was placed in the supine position. General endotracheal anesthesia was induced. SCDs and a safety belt were placed. Preoperative antibiotics were administered. The patient's bilateral chest was prepped and draped in the standard sterile fashion. Surgical timeout was performed and all parties were in agreement that this was the correct patient and procedure to be performed and we continued as planned. A transverse incision was made in the right axilla in a natural skin crease, and was dissected down through the skin and subcutaneous tissue with electrocautery. The fascia was incised and the sentinel lymph nodes were localized using the gamma probe. The lymph nodes were excised, and the highest reading was 1200 on the gamma probe ex vivo. 1 Additional lymph node was excised that read greater than 10% of the ex vivo count. The axilla was examined and was silent. Attention then turned to the lumpectomy. A transverse incision was made on the right and deepened down through the subcutaneous tissue with electrocautery. Flaps were raised in all directions. The wire was delivered into the wound. Breast tissue was circumferentially dissected around the wire and was taken down to chest wall. The mass was excised and passed off the table as specimen. The specimen was oriented. An x- ray was performed of the specimen and mammography called to confirm excision of the mass. The wounds were irrigated and hemostasis was confirmed. The skin was closed with interrupted 3-0 Vicryl deep dermal sutures, followed by 4-0 Monocryl running subcuticular suture. Dermabond was placed over the wound. The patient was extubated in the operating room and taken to the PACU where he recovered without apparent incident. All sponge, instrument and needle counts were correct at the conclusion of the procedure. The patient tolerated the procedure well. I attest to the content of the Intraoperative Record and any orders documented therein. Any exceptions are noted below.
[2017-01-09 15:00] VITALS: BP 162/72; PULSE 65; TEMP 36.5; O2SAT 94
--- NOTE | 2017-01-09 15:03 | Anesthesiology Progress Note ---
Anesthesia Post Op Note Date & Time Jan 09, 2017 at 15:03 Vital Signs Pain Intensity: 0 Vital Signs Past 12 Hours Date Time Temp Pulse Resp B/P (MAP) Pulse Ox O2 Delivery O2 Flow Rate FiO2 01/09/17 14:50 36.2 63 14 143/74 97 01/09/17 14:40 64 14 159/86 100 Nasal Cannula 2 01/09/17 14:30 63 20 156/85 100 Nasal Cannula 2 01/09/17 14:20 62 20 158/85 100 Oxymask 5 01/09/17 14:13 36.0 67 20 153/83 99 Oxymask 5 Notes Mental Status: alert / awake / arousable, participated in evaluation Pt Amnestic to Procedure: Yes Nausea / Vomiting: adequately controlled Pain: adequately controlled Airway Patency, RR, SpO2: stable & adequate BP & HR: stable & adequate Hydration State: stable & adequate Anesthetic Complications: no major complications apparent
--- NOTE | 2017-01-09 15:18 | MAMMOGRAPHY REPORT ---
SPECIMEN RIGHT BREAST: 01/09/2017 CLINICAL HISTORY: Status post right breast surgical excision. COMPARISON: Comparison is made to exams dated: 01/09/2017 localization, 12/03/2016 mammogram, 7 ultrasound biopsy, 11/26/2016 ultrasound, 11/26/2016 mammogram, and 06/15/2015 mammogram - [facility]. Findings: A radiograph was performed of the right breast surgical specimen. The localized biopsy mar ker clip and associated mass are present centrally within the specimen. The intact needle localizati on wire is also present. Results were relayed to Dr. Jo over the telephone. IMPRESSION: SPECIMEN The imaged specimen contains the preoperatively-localized abnormality. Louise Rebolledo M.D. ah/:01/09/2017 14:35:48 Universal Grinder Set Up Operator: Nidia KAISER)(M), [facility]
--- NOTE | 2017-01-09 15:18 | MAMMOGRAPHY REPORT ---
UNILATERAL RIGHT DIGITAL DIAGNOSTIC MAMMOGRAM TOMOSYNTHESIS: 01/09/2017 CLINICAL HISTORY: Status post ultrasound-guided needle localization of the right breast mass. TECHNIQUE: Breast tomosynthesis in addition to standard 2D mammography was performed. Right CC and ML 2-D and tomosynthesis images were obtained after ultrasound-guided needle localization. COMPARISON: Comparison is made to exams dated: 01/09/2017 localization, 12/03/2016 mammogram, 7 ultrasound biopsy, 11/26/2016 ultrasound, 11/26/2016 mammogram, and 06/15/2015 mammogram - [facility]. BREAST COMPOSITION: There are scattered areas of fibroglandular density in the right breast. FINDINGS: The biopsy marker clip and mass are located along the distal portion of the wire, between the tip and the hook of the wire. IMPRESSION: Status post needle localization of mass and associated biopsy marker clip in the right 9:00 breast. Approximately 10% of breast cancers are not detected with mammography. A negative mammographic report should not delay biopsy if a clinically suggestive mass is present. Louise Rebolledo M.D. ah/:01/09/2017 08:41:33 Shirt Cleaner: Nidia HOOKER(R)(M), [facility] BI-RADS Code: n/a
--- NOTE | 2017-01-09 15:18 | MAMMOGRAPHY REPORT ---
NEEDLE LOCALIZATION RIGHT BREAST: 01/09/2017 CLINICAL HISTORY: Biopsy proven right breast cancer. PROCEDURE DESCRIPTION: With ultrasound guidance, aseptic technique, and 1% lidocaine as the local ane sthetic, the area of concern was localized with a 3 cm Acosta 2 needle. The path of approach was ca udocranial. Unilateral mammograms were also obtained to confirm wire placement. The mammograms show the biopsy marker clip and mass to be located along the distal portion of the wire, between the tip and the hook of the wire. The needle was removed. The patient tolerated the procedure without compl ication. COMPARISON: Comparison is made to exams dated: 12/03/2016 mammogram, 11/26/2016 ultrasound, 11/26/2016 ma mmogram, 06/15/2015 mammogram - [facility], 05/26/2013 mammogram, and 05/26/2013 mammogr - [facility]. IMPRESSION: NEEDLE LOCALIZATION Needle localization of the mass and associated biopsy marker clip in the right 9:00 breast. Louise Rebolledo M.D. ah/:01/09/2017 08:39:22 Field Account Manager: Nidia KAISER)(M), [facility]
[2017-01-09 15:30] VITALS: BP 157/79; PULSE 64; TEMP 36.5; O2SAT 95
[2017-01-09 16:00] VITALS: BP 161/78; PULSE 66; TEMP 36.5; O2SAT 95
== END 2017-01-09 17:40 | disposition home or self-care (01) ==
LOC: C.ACU 08:03
PROVIDERS: ATTEND Surgery
DX: C50.911 Malignant neoplasm of unspecified site of right female breast (principal); I10 Essential (primary) hypertension; E78.5 Hyperlipidemia, unspecified; E05.90 Thyrotoxicosis, unspecified without thyrotoxic crisis or storm; G62.9 Polyneuropathy, unspecified; E55.9 Vitamin D deficiency, unspecified; Z79.01 Long term (current) use of anticoagulants; Z79.899 Other long term (current) drug therapy

== ENCOUNTER → 2017-01-28 | Outpatient (CLI) | payer OTHER ==
[~2017-01-28] MED LIST changes: -LACTATED RINGER'S 1000ML 1,000 ML IV SCH; +OXYC-57 PO
--- NOTE | 2017-01-28 15:06 | ECHOCARDIOGRAM REPORT ---
*NOTICE TO RECEIVING DEMOCRAT AGENCY This information is strictly Confidential and protected under [place] law. [place] law prohibits you from making any further disclosure of this information unless further disclosure is expressly permitted by the written consent of the person to whom it pertains or is authorized by law. A general authorization for the release of medical or other information is not sufficient for this purpose. Hospital accepts no responsibility if the information is made available to any other person, INCLUDING THE PATIENT. Interpretation Summary * Name: JOSE DUNN Study Date: 01/28/2017 11:55 AM BP: 129/59 mmHg * Patient Location: [facility] HR: 57 * : 1945 (M/d/yyyy) Gender: Female Height: 66 in * Age: 72 yrs Ethnicity: [place] Weight: 190 lb * Ordering Physician: Jorge Alonzo * Referring Physician: Jorge Alonzo D.O. * Performed By: Danielle Sosa RDCS * * Reason For Study: Breast Cancer * BSA: 2.0 m2 * -- Conclusions -- * The left ventricle is borderline dilated. * There is borderline asymmetric left ventricular hypertrophy. * Left ventricular systolic function is normal. * Grade I diastolic dysfunction, (abnormal relaxation pattern). * There is mild right ventricular hypertrophy. * Mild to moderate aortic regurgitation. * Mild aortic root dilatation. Procedure Details * A complete two-dimensional transthoracic echocardiogram was performed (2D, M-mode, Doppler and color flow Doppler). Left Ventricle * The left ventricle is borderline dilated. * There is borderline asymmetric left ventricular hypertrophy. * Ejection Fraction = 55-60%. * Left ventricular systolic function is normal. * Grade I diastolic dysfunction, (abnormal relaxation pattern). * The left ventricular wall motion is normal. Right Ventricle * The right ventricle is normal in size and function. * There is mild right ventricular hypertrophy. Atria * The left atrial size is normal. * Right atrial size is normal. * Atrial septum appears aneurysmal Mitral Valve * The mitral valve leaflets appear thickened, but open well. * Significant mitral regurgitation is absent. Tricuspid Valve * The tricuspid valve anatomy is normal. * Significant tricuspid regurgitation is absent. Aortic Valve * The aortic valve is trileaflet. * Mild calcification involving the left coronary cusp * No hemodynamically significant valvular aortic stenosis. * Mild to moderate aortic regurgitation. Great Vessels * Mild aortic root dilatation. Pericardium/Pleural * Trace pericardial effusion MMode 2D Measurements and Calculations IVSd 1.2 cm IVSs 1.3 cm LVIDd 5.4 cm LVIDs 3.9 cm LVPWd 0.96 cm LVPWs 1.6 cm IVS/LVPW 1.2 FS 28.6 % EDV(Teich) 143.7 ml ESV(Teich) 65.2 ml EF(Teich) 54.6 % EDV(cubed) 160.9 ml ESV(cubed) 58.6 ml EF(cubed) 63.6 % % IVS thick 9.7 % % LVPW thick 70.6 % LV mass(C)d 228.3 grams LV mass(C)dI 116.6 grams/m\S\2 LV mass(C)s 214.9 grams LV mass(C)sI 109.8 grams/m\S\2 SV(Teich) 78.5 ml SI(Teich) 40.1 ml/m\S\2 SV(cubed) 102.4 ml SI(cubed) 52.3 ml/m\S\2 EPSS 1.0 cm Ao root diam 4.0 cm Ao root area 12.3 cm\S\2 ACS 1.8 cm LA dimension 3.9 cm asc Aorta Diam 4.1 cm LA/Ao 10 Doppler Measurements and Calculations MV E max joshua 48.5 cm/sec MV A max joshua 91.1 cm/sec MV E/A 0.53 MV dec time 0.31 sec Ao V2 max 150.1 cm/sec Ao max PG 9.0 mmHg Ao max PG (full) 5.1 mmHg AI max joshua 469.3 cm/sec AI max PG 88.2 mmHg AI dec slope 194.2 cm/sec\S\2 AI P1/2t 707.9 msec LV V1 max PG 3.9 mmHg LV V1 max 99.3 cm/sec PA V2 max 80.2 cm/sec PA max PG 2.6 mmHg PI max joshua 148.4 cm/sec PI max PG 8.8 mmHg PI dec slope 96.9 cm/sec\S\2 PI P1/2t 448.5 msec
== END | disposition home or self-care (01) ==
LOC: C.CPL 11:34
PROVIDERS: ATTEND Internal Medicine Hematology & Oncology
DX: C50.511 Malignant neoplasm of lower-outer quadrant of right female breast (principal)

== ENCOUNTER 2017-02-04 05:03 | Day surgery (SDC) | payer OTHER ==
[~2017-02-04] VITALS: Ht 167.6 cm; Wt 86.4 kg
[~2017-02-04 05:03] MED LIST changes: +MISSING PHYSICIAN SIGNATURE ON ORDER SCH; -OXYC-57 PO; -WARF2.5T8 PO; -WARF5TAB7 PO
[2017-02-04 05:34] VITALS: BP 153/76; PULSE 62; TEMP 37.2; O2SAT 99; Ht 167.6 cm; Wt 86.4 kg
[2017-02-04] MEDS ORDERED: LACTATED RINGER'S 1000ML 1,000 ML IV SCH (06:00)
[2017-02-04] MEDS ORDERED: CEFAZOLIN 2000 MG/60 ML D5W IV SCH ×2 (06:00)
[2017-02-04] MEDS ORDERED: ATROPINE SULFATE 0.1 MG/ML 5ML SYR IV PRN (06:15)
[2017-02-04] MEDS ORDERED: FENTANYL CITRATE INJ 50 MCG/1 ML 2 ML VIAL IV PRN (06:15)
[2017-02-04] MEDS ORDERED: ONDANSETRON INJ 2 MG/ML 2 ML VIAL IV PRN ×2 (06:15→08:30)
[2017-02-04] MEDS ORDERED: HYDROmorphone INJ 1 MG/ML SYR IV PRN (06:15)
[2017-02-04] MEDS ORDERED: LABETALOL HCL IV 5 MG/ML 20ML IV PRN (06:15)
[2017-02-04] MEDS ORDERED: EpHEDrine SULFATE INJ 50 MG/ML AMP IV PRN (06:15)
[2017-02-04] MEDS ORDERED: PHENYLEPHRINE 100MCG/ML 5ML SYR IV PRN (06:15)
[2017-02-04 06:21] LABS: PROTHROMBIN TIME (PATIENT) 10.7 SECONDS (9.0-12.0)
[2017-02-04] MEDS ORDERED: FENTANYL CITRATE INJ 50 MCG/1 ML 2 ML VIAL ONE (06:37)
[2017-02-04] MEDS ORDERED: MIDAZOLAM HCL 1 MG/ML 2ML VIAL ONE (06:37)
[2017-02-04] MEDS ORDERED: LIDOCAINE HCL 2% 2 ML VIAL (20MG/ML) ONE (06:37)
[2017-02-04] MEDS ORDERED: PROPOFOL IV EMULSION 10 MG/ML 20 ML VIAL IV ONE ×2 (06:37→07:51)
[2017-02-04] MEDS ORDERED: HEPARIN SOD (PORCINE) 1000 UNIT/ML 10 ML VIAL ONE (06:52)
[2017-02-04] MEDS ORDERED: BUPIVACAINE 0.5 % 5 MG/1 ML MPF 30ML VIAL ONE (06:53)
[2017-02-04] MEDS ORDERED: CEFAZOLIN IV 2,000 MG/60 ML D5W IV ONE (07:01)
--- NOTE | 2017-02-04 07:03 | History & Physical Bridge Note ---
H&P Re-Evaluation Bridge Note: I have examined the patient, reviewed the History & Physical and in the interval since the performance of the History & Physical I have noted the following changes of clinical significance: No changes noted
[2017-02-04] MEDS ORDERED: SODIUM CHLORIDE 0.9% 1000ML 1,000 ML IV SCH (08:22)
--- NOTE | 2017-02-04 08:23 | [facility] Post Operative Brief Note ---
Immediate Operative Summary Operative Date Feb 04, 2017. Pre-Operative Diagnosis Breast Cancer Post-Operative Diagnosis Same as preoperative Procedure(s) Performed Insertion of Mediport with Fluoroscopy, Left Subclavian Vein Surgeon Dr. Krishna Jo Ccie Surgeon(s) None per surgeon Estimated Blood Loss 10ml Findings left subclavian vein port placed Specimens None per surgeon Anesthesia MAC, local Complication(s) None Disposition Recovery Room / PACU
--- NOTE | 2017-02-04 08:25 | Discharge Instructions ---
Discharge Instructions Date of Service Feb 04, 2017. Admission Reason for Admission: Breast Cancer Discharge Discharge Diagnosis / Problem: Breast Cancer Discharge Goals Goal(s): Decrease discomfort, Improve function Activity Recommendations Activity Limitations: as noted below Lifting Limitations: no more than 10 pounds Exercise/Sports Limitations: until after follow-up appointment May Resume Sexual Activity: after follow-up appointment Shower/Bathe: tomorrow Driving or Machine Use: resume 1 day after discharge . Instructions / Follow-Up Instructions / Follow-Up For pain, you may use over the counter pain medication such as Tylenol. Please follow-up with Dr. Jo in the office in 1-2 weeks. Please call the office at [phone] to make a follow-up appointment if you do not have one already. Please call the office with any questions or concerns. Current Hospital Diet Patient's current hospital diet: Discharge Diet Recommended Diet: Regular Diet Procedures Procedures Performed: Insertion of Mediport with Fluoroscopy, Left Subclavian Vein Pending Studies Studies pending at discharge: no Medical Emergencies . Who to Call and When: Medical Emergencies: If at any time you feel your situation is an emergency, please call 911 immediately. . Non-Emergent Contact Non-Emergency issues call your: Primary Care Provider, Surgeon Call Non-Emergent contact if: temperature is above 101.5, your pain is not controlled, wound has increased drainage, wound has increased redness . "Provider Documentation" section prepared by Jil Phillips. . VTE Core Measure Inpt VTE Proph given/why not?: SCD's [place] Drug Monitoring Program Search Results: patient reviewed within database, no issues identified
[2017-02-04] MEDS ORDERED: OXYCODONE/ACETAMINOPHEN 5-325 TAB PO PRN ×2 (08:30)
--- NOTE | 2017-02-04 08:37 | Anesthesiology Progress Note ---
Anesthesia Post Op Note Date & Time Feb 04, 2017 at 08:37 Vital Signs Pain Intensity: 0 Vital Signs Past 12 Hours Date Time Temp Pulse Resp B/P (MAP) Pulse Ox O2 Delivery O2 Flow Rate FiO2 02/04/17 08:30 59 16 178/83 100 Oxymask 10 02/04/17 08:21 36.4 60 16 165/79 100 Oxymask 10 02/04/17 05:34 37.2 62 20 153/76 (101) 99 Room Air Notes Mental Status: alert / awake / arousable, participated in evaluation Pt Amnestic to Procedure: Yes Nausea / Vomiting: adequately controlled Pain: adequately controlled Airway Patency, RR, SpO2: stable & adequate BP & HR: stable & adequate Hydration State: stable & adequate Anesthetic Complications: no major complications apparent
--- NOTE | 2017-02-04 08:40 | [facility] Operative Report ---
Operative Report Operative Date Feb 04, 2017. Pre-Operative Diagnosis Breast Cancer Post-Operative Diagnosis breast cancer Procedure(s) Performed left subclavian vein port placement Surgeon Dr. Krishna Jo Electric Tape Slitter Surgeon(s) None per surgeon Estimated Blood Loss 10ml Findings left subclavian vein port placed, deidra and flushed easily. Specimens None per surgeon Anesthesia MAC, local Complication(s) None Disposition Recovery Room / PACU Indications 72 year old female with right breast cancer and need for long term care administrator venous access , plan for port placement. The risks of the procedure were discussed, all questions were answered, and the patient agreed to proceed with surgery as planned. Description of Procedure The patient was properly identified, consented, and taken to the operating room where she was placed in the supine position with bilateral arms tucked and bump between the shoulders. Monitored anesthesia care was induced. SCDs and a safety belt were placed. Preoperative antibiotics were administered. The patient's chest and neck was prepped and draped in the standard sterile fashion. Surgical timeout was performed and all parties were in agreement that this was the correct patient and procedure to be performed and we continued as planned. Local anesthetic was injected along the skin incision. The access needle was used to access the left subclavian vein. The wire was advanced and fluoroscopy confirmed access into the subclavian vein with wire terminating at the atriocaval junction. An incision was made overlying the wire and deepened down through the subcutaneous tissue with electrocautery. A pocket was created under the skin. The dilator and introducer was placed over the wire. The catheter was measured, flushed and fed over the wire. Fluoroscopy confirmed access of the catheter. The catheter was cut at 18cm and attached to the port. The port was secured to the chest wall with 0 nurolon sutures. An additional 0 nurolon suture was placed to secure the catheter. The wound was irrigated and hemostasis was confirmed. The skin was closed with interrupted 3-0 Vicryl deep dermal sutures, followed by 4-0 Monocryl running subcuticular suture. Dermabond was placed over the wound. The port was accessed and deidra and flushed easily. It was flushed with heparinized saline. The patient was extubated in the operating room and taken to the PACU where she recovered without apparent incident. All sponge, instrument and needle counts were correct at the conclusion of the procedure. The patient tolerated the procedure well. Chest xray was pending in the PACU. I attest to the content of the Intraoperative Record and any orders documented therein. Any exceptions are noted below.
--- NOTE | 2017-02-04 08:41 | DIAGNOSTIC IMAGING REPORT ---
CHEST ONE VIEW PORTABLE HISTORY: s/p port insertion COMPARISON: Chest 12/28/2016. FINDINGS: Interval placement of left subclavian Port-A-Cath which terminates at the brachiocephalic/SVC junction. The tubing appears intact. No pneumothorax. No pleural effusions. The heart remains mildly enlarged. Linear density left lung base favor subsegmental atelectasis. IMPRESSION: Interval placement left subclavian Port-A-Cath which terminates in the expected location of the brachiocephalic/SVC junction. No pneumothorax. Electronically signed by: Eduardo Rios M.D. 02/04/2017 8:40 AM Dictated Date/Time: 02/04/2017 8:38 AM
[2017-02-04 08:50] VITALS: BP 177/84; PULSE 60; TEMP 36.5; O2SAT 97
[2017-02-04 09:20] VITALS: BP 176/82; PULSE 63; O2SAT 97
== END 2017-02-04 09:32 | disposition home or self-care (01) ==
LOC: C.ACU 05:03
PROVIDERS: ATTEND Surgery
DX: C50.911 Malignant neoplasm of unspecified site of right female breast (principal); I10 Essential (primary) hypertension; E78.5 Hyperlipidemia, unspecified; E05.90 Thyrotoxicosis, unspecified without thyrotoxic crisis or storm; Z86.718 Personal history of other venous thrombosis and embolism; Z98.890 Other specified postprocedural states; Z79.01 Long term (current) use of anticoagulants; Z98.41 Cataract extraction status, right eye; E66.9 Obesity, unspecified; Z68.30 Body mass index [BMI] 30.0-30.9, adult; Z90.49 Acquired absence of other specified parts of digestive tract; Z82.49 Family history of ischemic heart disease and other diseases of the circulatory system

== ENCOUNTER → 2017-03-18 | Outpatient (CLI) | payer OTHER ==
[~2017-03-18] MED LIST changes: -MISSING PHYSICIAN SIGNATURE ON ORDER SCH
[2017-03-18 12:59] LABS: BASO % 0.6 %; BASO ABS # 0.03 K/uL (0-0.2); COMPLETE YES; EOS % 0.2 %; HEMATOCRIT 33.4 % (37-47); IG% 0.2 %; LYMPH % 18.2 %; LYMPH ABS # 0.89 K/uL (1.2-3.4); MEAN CELL VOLUME 90.3 fL (80-100); MEAN CORPUSCULAR HEMOGLOBIN 28.6 pg (25-34); MEAN CORPUSCULAR HGB CONC 31.7 g/dl (32-36); MEAN PLATELET VOLUME 8.5 fL (7.4-10.4); MONO % 7.1 %; NEUT % 73.7 %; PLATELET COUNT 174 K/uL (130-400)
[2017-03-18 13:26] LABS: ALT/SGPT 11 U/L (12-78); BLOOD UREA NITROGEN 18 mg/dl (7-18); BUN/CREATININE RATIO 15.9 (10-20); CALCIUM 9.3 mg/dl (8.5-10.1); CARBON DIOXIDE 29 mmol/L (21-32); CHLORIDE 105 mmol/L (98-107); CREATININE 1.12 mg/dl (0.60-1.20); GLUCOSE 92 mg/dl (70-99); POTASSIUM 4.1 mmol/L (3.5-5.1); SODIUM 140 mmol/L (136-145)
[2017-03-18 13:29] LABS: ALB/GLOB RATIO 0.9 (0.9-2); ALKALINE PHOSPHATASE 135 U/L (45-117); AST/SGOT 18 U/L (15-37)
[2017-03-18 14:12] LABS: CHOLESTEROL/HDL RATIO 4.2; THYROID STIMULATING HORMONE 0.317 uIu/ml (0.300-4.500)
== END | disposition home or self-care (01) ==
LOC: C.LABMFLN 08:37
PROVIDERS: ATTEND Nurse Practitioner Family
DX: C50.511 Malignant neoplasm of lower-outer quadrant of right female breast (principal); E55.9 Vitamin D deficiency, unspecified; E05.90 Thyrotoxicosis, unspecified without thyrotoxic crisis or storm; I80.00 Phlebitis and thrombophlebitis of superficial vessels of unspecified lower extremity; E78.5 Hyperlipidemia, unspecified

== ENCOUNTER → 2017-03-22 | Outpatient (CLI) | payer OTHER | END | disposition home or self-care (01) | LOC: C.LABMFLN 14:08 | PROVIDERS: ATTEND Nurse Practitioner Family | DX: C50.511 Malignant neoplasm of lower-outer quadrant of right female breast (principal) ==

== ENCOUNTER → 2017-03-27 | Outpatient (CLI) | payer OTHER ==
[2017-03-27 12:57] LABS: INR 1.7 (0.9-1.1); PROTHROMBIN TIME (PATIENT) 17.2 SECONDS (9.0-12.0)
== END | disposition home or self-care (01) ==
LOC: C.LABMFLN 09:46
PROVIDERS: ATTEND Surgery
DX: Z48.89 Encounter for other specified surgical aftercare (principal)

== ENCOUNTER → 2017-06-17 | Outpatient (CLI) | payer OTHER ==
[2017-06-17 13:02] LABS: HEMOGLOBIN 10.5 g/dL (12.0-16.0); MEAN CELL VOLUME 100.9 fL (80-100); MEAN CORPUSCULAR HEMOGLOBIN 33.1 pg (25-34); MEAN CORPUSCULAR HGB CONC 32.8 g/dl (32-36); RED CELL DISTRIBUTION WIDTH CV 15.6 % (11.5-14.5); RED CELL DISTRIBUTION WIDTH SD 57.4 fL (36.4-46.3); WHITE BLOOD COUNT 4.33 K/uL (4.8-10.8)
[2017-06-17 13:13] LABS: MEAN PLATELET VOLUME 8.1 fL (7.4-10.4); PLATELET COUNT 90 K/uL (130-400)
[2017-06-17 13:29] LABS: BASO % 0.2 %; BASO ABS # 0.01 K/uL (0-0.2); EOS % 0.2 %; EOS ABS # 0.01 K/uL (0-0.5); IG# 0.01 K/uL (0.00-0.02); LYMPH % 19.9 %; LYMPH ABS # 0.86 K/uL (1.2-3.4); MONO % 8.3 %; MONO ABS # 0.36 K/uL (0.11-0.59); NEUT % 71.2 %; NEUT ABS # 3.08 K/uL (1.4-6.5)
[2017-06-17 14:53] LABS: ALBUMIN 3.4 gm/dl (3.4-5.0); BLOOD UREA NITROGEN 17 mg/dl (7-18); CALCIUM 8.7 mg/dl (8.5-10.1); CARBON DIOXIDE 28 mmol/L (21-32); CREATININE 1.23 mg/dl (0.60-1.20); GLUCOSE 143 mg/dl (70-99); SODIUM 140 mmol/L (136-145)
[2017-06-17 14:58] LABS: ALKALINE PHOSPHATASE 105 U/L (45-117); ALT/SGPT 12 U/L (12-78); AST/SGOT 16 U/L (15-37); TOTAL PROTEIN 6.4 gm/dl (6.4-8.2)
--- NOTE | 2017-06-17 15:31 | ECHOCARDIOGRAM REPORT ---
*NOTICE TO RECEIVING CONSTITUTION PARTY AGENCY This information is strictly Confidential and protected under [place] law. [place] law prohibits you from making any further disclosure of this information unless further disclosure is expressly permitted by the written consent of the person to whom it pertains or is authorized by law. A general authorization for the release of medical or other information is not sufficient for this purpose. Hospital accepts no responsibility if the information is made available to any other person, INCLUDING THE PATIENT. Interpretation Summary * Name: JOSE DUNN Study Date: 06/17/2017 12:31 PM BP: 120/68 mmHg * Patient Location: [facility] HR: 77 * : 1945 (M/d/yyyy) Gender: Female Height: 66 in * Age: 72 yrs Ethnicity: CA Weight: 190 lb * Ordering Physician: Ling White * Referring Physician: Ling White . CASINO GAMING WORKER * Performed By: Danielle Sosa RDCS * * Reason For Study: Breast Cancer * BSA: 2.0 m2 * -- Conclusions -- * Left ventricular systolic function is normal. * Grade I diastolic dysfunction, (abnormal relaxation pattern). * Aortic valve sclerosis mild, without significant aortic valvular stenosis. * Mild to moderate aortic regurgitation. * Right ventricular systolic pressure is normal. * Compared to an echocardiogram from 01/2017, there is no change. Procedure Details * A complete two-dimensional transthoracic echocardiogram was performed (2D, M-mode, Doppler and color flow Doppler). Left Ventricle * The left ventricle is normal in size. * There is normal left ventricular wall thickness. * Ejection Fraction = 55-60%. * Left ventricular systolic function is normal. * Grade I diastolic dysfunction, (abnormal relaxation pattern). * The left ventricular wall motion is normal. Right Ventricle * The right ventricle is normal in size and function. * The right ventricular systolic function is normal as assessed by tricuspid annular plane systolic excursion (TAPSE) (normal >1.5 cm). Atria * The left atrial size is normal. * Right atrial size is normal. * The atrial septum is aneurysmal. * Cannot exclude PFO Mitral Valve * The mitral valve anatomy is normal. * Significant mitral regurgitation is absent. Tricuspid Valve * The tricuspid valve is not well visualized, but is grossly normal. * There is trace tricuspid regurgitation. * Right ventricular systolic pressure is normal. Aortic Valve * Aortic valve sclerosis mild, without significant aortic valvular stenosis. * No hemodynamically significant valvular aortic stenosis. * Mild to moderate aortic regurgitation. Great Vessels * The aortic root is normal size. Pericardium/Pleural * There is no pericardial effusion. MMode 2D Measurements and Calculations IVSd 1.1 cm IVSs 1.4 cm LVIDd 5.0 cm LVIDs 3.3 cm LVPWd 1.2 cm LVPWs 2.0 cm IVS/LVPW 0.95 FS 34.1 % EDV(Teich) 120.1 ml ESV(Teich) 44.6 ml EF(Teich) 62.8 % EDV(cubed) 127.6 ml ESV(cubed) 36.5 ml EF(cubed) 71.4 % % IVS thick 30.0 % % LVPW thick 67.7 % LV mass(C)d 221.5 grams LV mass(C)dI 113.2 grams/m\S\2 LV mass(C)s 224.8 grams LV mass(C)sI 114.9 grams/m\S\2 SV(Teich) 75.5 ml SI(Teich) 38.6 ml/m\S\2 SV(cubed) 91.1 ml SI(cubed) 46.6 ml/m\S\2 Ao root diam 3.7 cm Ao root area 10.7 cm\S\2 ACS 1.9 cm LA dimension 3.9 cm asc Aorta Diam 4.1 cm LA/Ao 1.1 LVOT diam 2.0 cm LVOT area 3.2 cm\S\2 LVAd ap4 26.1 cm\S\2 LVLd ap4 7.1 cm EDV(MOD-sp4) 80.3 ml EDV(sp4-el) 81.9 ml LVAs ap4 16.8 cm\S\2 LVLs ap4 6.8 cm ESV(MOD-sp4) 36.3 ml ESV(sp4-el) 35.3 ml EF(MOD-sp4) 54.8 % EF(sp4-el) 56.9 % LVAd ap2 21.7 cm\S\2 LVLd ap2 6.5 cm EDV(MOD-sp2) 64.4 ml EDV(sp2-el) 61.3 ml LVAs ap2 12.8 cm\S\2 LVLs ap2 6.3 cm ESV(MOD-sp2) 24.9 ml ESV(sp2-el) 21.9 ml EF(MOD-sp2) 61.4 % EF(sp2-el) 64.3 % LVLd %diff -8.31 % EDV(MOD-bp) 73.5 ml LVLs %diff -7.30 % ESV(MOD-bp) 30.6 ml EF(MOD-bp) 58.3 % SV(MOD-sp4) 44.0 ml SI(MOD-sp4) 22.5 ml/m\S\2 SV(MOD-sp2) 39.5 ml SI(MOD-sp2) 20.2 ml/m\S\2 SV(MOD-bp) 42.9 ml SI(MOD-bp) 21.9 ml/m\S\2 SV(sp4-el) 46.6 ml SI(sp4-el) 23.8 ml/m\S\2 SV(sp2-el) 39.4 ml SI(sp2-el) 20.1 ml/m\S\2 Doppler Measurements and Calculations MV E max joshua 61.5 cm/sec MV A max joshua 91.1 cm/sec MV E/A 0.67 MV dec time 0.32 sec Ao V2 max 216.7 cm/sec Ao max PG 18.8 mmHg Ao max PG (full) 13.8 mmHg Ao V2 mean 149.3 cm/sec Ao mean PG 10.0 mmHg Ao mean PG (full) 7.2 mmHg Ao V2 VTI 42.9 cm MELLISA(I,A) 1.9 cm\S\2 MELLISA(I,D) 1.9 cm\S\2 MELLISA(V,A) 1.6 cm\S\2 MELLISA(V,D) 1.6 cm\S\2 AI max joshua 499.3 cm/sec AI max PG 100.0 mmHg AI dec slope 214.1 cm/sec\S\2 AI P1/2t 683.2 msec LV V1 max PG 5.0 mmHg LV V1 mean PG 2.8 mmHg LV V1 max 111.7 cm/sec LV V1 mean 77.8 cm/sec LV V1 VTI 25.2 cm SV(Ao) 459.9 ml SI(Ao) 235.0 ml/m\S\2 SV(LVOT) 80.6 ml SI(LVOT) 41.2 ml/m\S\2 PA V2 max 119.9 cm/sec PA max PG 5.8 mmHg PI max joshua 168.7 cm/sec PI max PG 11.4 mmHg PI dec slope 182.1 cm/sec\S\2 PI P1/2t 271.3 msec TR max joshua 244.6 cm/sec
== END | disposition home or self-care (01) ==
LOC: C.CPL 12:00
PROVIDERS: ATTEND Nurse Practitioner Family
DX: C50.511 Malignant neoplasm of lower-outer quadrant of right female breast (principal)

== ENCOUNTER → 2017-08-20 | Outpatient (CLI) | payer OTHER ==
[2017-08-20 13:00] LABS: BASO % 0.3 %; BASO ABS # 0.01 K/uL (0-0.2); EOS % 1.6 %; EOS ABS # 0.05 K/uL (0-0.5); HEMATOCRIT 37.9 % (37-47); HEMOGLOBIN 12.5 g/dL (12.0-16.0); LYMPH % 25.9 %; LYMPH ABS # 0.81 K/uL (1.2-3.4); MEAN CELL VOLUME 94.5 fL (80-100); MEAN CORPUSCULAR HEMOGLOBIN 31.2 pg (25-34); MEAN PLATELET VOLUME 8.5 fL (7.4-10.4); MONO % 7.3 %; MONO ABS # 0.23 K/uL (0.11-0.59); NEUT % 64.9 %; NEUT ABS # 2.03 K/uL (1.4-6.5); PLATELET COUNT 153 K/uL (130-400); RED CELL DISTRIBUTION WIDTH CV 13.4 % (11.5-14.5); WHITE BLOOD COUNT 3.13 K/uL (4.8-10.8)
[2017-08-20 13:10] LABS: ALBUMIN 3.7 gm/dl (3.4-5.0); ALT/SGPT 10 U/L (12-78); AST/SGOT 16 U/L (15-37); BLOOD UREA NITROGEN 18 mg/dl (7-18); CALCIUM 9.2 mg/dl (8.5-10.1); CARBON DIOXIDE 30 mmol/L (21-32); GLUCOSE 85 mg/dl (70-99); POTASSIUM 4.2 mmol/L (3.5-5.1); SODIUM 142 mmol/L (136-145)
[2017-08-20 13:14] LABS: ALKALINE PHOSPHATASE 120 U/L (45-117)
[2017-08-20 13:18] LABS: BLOOD UREA NITROGEN 18 mg/dl (7-18); CALCIUM 9.2 mg/dl (8.5-10.1); CARBON DIOXIDE 29 mmol/L (21-32); CHOLESTEROL 213 mg/dl (0-200); CREATININE 1.32 mg/dl (0.60-1.20); GLUCOSE 86 mg/dl (70-99); POTASSIUM 4.2 mmol/L (3.5-5.1); SODIUM 142 mmol/L (136-145)
[2017-08-20 13:21] LABS: LDL CHOLESTEROL CALCULATED 133 mg/dl
== END | disposition home or self-care (01) ==
LOC: C.LABMFLN 08:19
PROVIDERS: ATTEND Nurse Practitioner Family
DX: I10 Essential (primary) hypertension (principal); E55.9 Vitamin D deficiency, unspecified; I82.509 Chronic embolism and thrombosis of unspecified deep veins of unspecified lower extremity; E05.90 Thyrotoxicosis, unspecified without thyrotoxic crisis or storm; C50.511 Malignant neoplasm of lower-outer quadrant of right female breast

== ENCOUNTER → 2017-08-22 | Outpatient (CLI) | payer OTHER | END | disposition home or self-care (01) | LOC: C.LABMFLN 07:24 | PROVIDERS: ATTEND Family Medicine | DX: I10 Essential (primary) hypertension (principal); I82.509 Chronic embolism and thrombosis of unspecified deep veins of unspecified lower extremity; E05.90 Thyrotoxicosis, unspecified without thyrotoxic crisis or storm; E55.9 Vitamin D deficiency, unspecified ==

== ENCOUNTER → 2017-09-09 | Outpatient (CLI) | payer OTHER ==
--- NOTE | 2017-09-09 16:32 | ECHOCARDIOGRAM REPORT ---
*NOTICE TO RECEIVING LIBERTARIAN AGENCY This information is strictly Confidential and protected under [place] law. [place] law prohibits you from making any further disclosure of this information unless further disclosure is expressly permitted by the written consent of the person to whom it pertains or is authorized by law. A general authorization for the release of medical or other information is not sufficient for this purpose. Hospital accepts no responsibility if the information is made available to any other person, INCLUDING THE PATIENT. Interpretation Summary * Name: JOSE DUNN Study Date: 09/09/2017 01:14 PM * Patient Location: [facility] HR: 78 * : 1945 (M/d/yyyy) Gender: Female Height: 66 in * Age: 72 yrs Ethnicity: CA Weight: 187 lb * Ordering Physician: Jorge Alonzo * Referring Physician: Jorge Alonzo D.O. * Performed By: Tricia Cardona RDCS * * Reason For Study: BREAST CA * BSA: 1.9 m2 * -- Conclusions -- * There is mild asymmetric left ventricular hypertrophy. * Left ventricular systolic function is normal. * Grade I diastolic dysfunction, (abnormal relaxation pattern). * Aortic valve sclerosis mild, without significant aortic valvular stenosis. * Mild aortic regurgitation. * Right ventricular systolic pressure is normal. * Compared to study from 05/2017, there is no significant change. Procedure Details * A complete two-dimensional transthoracic echocardiogram was performed (2D, M-mode, Doppler and color flow Doppler). * The study was technically difficult. * Could not find a vein for Definity, couldn't use patient's port. Left Ventricle * The left ventricle is normal in size. * There is mild asymmetric left ventricular hypertrophy. * Left ventricular systolic function is normal. * Ejection Fraction = 55-60%. * Grade I diastolic dysfunction, (abnormal relaxation pattern). * The left ventricular wall motion is normal. Right Ventricle * The right ventricle is normal in size and function. Atria * The left atrial size is normal. * Right atrial size is normal. Mitral Valve * The mitral valve anatomy is normal. * Significant mitral regurgitation is absent. Tricuspid Valve * The tricuspid valve is not well visualized, but is grossly normal. * There is trace tricuspid regurgitation. * Right ventricular systolic pressure is normal. Aortic Valve * Aortic valve sclerosis mild, without significant aortic valvular stenosis. * No hemodynamically significant valvular aortic stenosis. * Mild aortic regurgitation. Pulmonic Valve * The pulmonic valve is not well visualized. Pericardium/Pleural * There is no pericardial effusion. MMode 2D Measurements and Calculations IVSd 1.7 cm IVSs 1.9 cm LVIDd 4.1 cm LVIDs 3.0 cm LVPWd 1.1 cm LVPWs 2.1 cm IVS/LVPW 1.6 FS 26.7 % EDV(Teich) 74.4 ml ESV(Teich) 35.3 ml EF(Teich) 52.6 % EDV(cubed) 69.2 ml ESV(cubed) 27.3 ml EF(cubed) 60.6 % % IVS thick 10.4 % % LVPW thick 98.2 % LV mass(C)d 213.6 grams LV mass(C)dI 109.9 grams/m\S\2 LV mass(C)s 262.7 grams LV mass(C)sI 135.1 grams/m\S\2 SV(Teich) 39.2 ml SI(Teich) 20.1 ml/m\S\2 SV(cubed) 41.9 ml SI(cubed) 21.6 ml/m\S\2 ACS 1.9 cm LA dimension 3.8 cm asc Aorta Diam 4.3 cm LVOT diam 2.3 cm LVOT area 4.0 cm\S\2 Doppler Measurements and Calculations MV E max joshua 59.9 cm/sec MV A max joshua 94.9 cm/sec MV E/A 0.63 MV dec time 0.26 sec Ao V2 max 180.3 cm/sec Ao max PG 13.0 mmHg Ao max PG (full) 9.7 mmHg MELLISA(V,A) 2.0 cm\S\2 MELLISA(V,D) 2.0 cm\S\2 AI max joshua 434.2 cm/sec AI max PG 75.4 mmHg AI dec slope 238.7 cm/sec\S\2 AI P1/2t 532.7 msec LV V1 max PG 3.3 mmHg LV V1 max 90.5 cm/sec PA V2 max 70.6 cm/sec PA max PG 2.0 mmHg PI end-d joshua 84.6 cm/sec TR max joshua 148.4 cm/sec
== END | disposition home or self-care (01) ==
LOC: C.CPL 13:08
PROVIDERS: ATTEND Internal Medicine Hematology & Oncology
DX: C50.511 Malignant neoplasm of lower-outer quadrant of right female breast (principal)

== ENCOUNTER → 2017-09-10 | Outpatient (CLI) | payer OTHER | END | disposition home or self-care (01) | LOC: C.LABMFLN 07:31 | PROVIDERS: ATTEND Family Medicine | DX: I82.509 Chronic embolism and thrombosis of unspecified deep veins of unspecified lower extremity (principal); E05.90 Thyrotoxicosis, unspecified without thyrotoxic crisis or storm ==

== ENCOUNTER → 2017-11-12 | Outpatient (CLI) | payer OTHER ==
[2017-11-12 13:16] LABS: BASO % 0.3 %; BASO ABS # 0.01 K/uL (0-0.2); EOS % 1.3 %; EOS ABS # 0.05 K/uL (0-0.5); HEMATOCRIT 38.7 % (37-47); HEMOGLOBIN 12.7 g/dL (12.0-16.0); IG# 0.01 K/uL (0.00-0.02); LYMPH % 16.5 %; LYMPH ABS # 0.62 K/uL (1.2-3.4); MEAN CORPUSCULAR HEMOGLOBIN 29.5 pg (25-34); MEAN CORPUSCULAR HGB CONC 32.8 g/dl (32-36); MEAN PLATELET VOLUME 9.3 fL (7.4-10.4); MONO % 7.2 %; MONO ABS # 0.27 K/uL (0.11-0.59); NEUT % 74.4 %; PLATELET COUNT 146 K/uL (130-400); RED CELL DISTRIBUTION WIDTH CV 14.8 % (11.5-14.5); RED CELL DISTRIBUTION WIDTH SD 48.6 fL (36.4-46.3); WHITE BLOOD COUNT 3.76 K/uL (4.8-10.8)
[2017-11-12 13:28] LABS: ALBUMIN 3.5 gm/dl (3.4-5.0); ALKALINE PHOSPHATASE 137 U/L (45-117); ALT/SGPT 12 U/L (12-78); AST/SGOT 15 U/L (15-37); BLOOD UREA NITROGEN 17 mg/dl (7-18); CALCIUM 8.6 mg/dl (8.5-10.1); CARBON DIOXIDE 27 mmol/L (21-32); CREATININE 1.46 mg/dl (0.60-1.20); GLUCOSE 90 mg/dl (70-99); POTASSIUM 4.3 mmol/L (3.5-5.1); SODIUM 141 mmol/L (136-145); TOTAL PROTEIN 6.7 gm/dl (6.4-8.2)
== END | disposition home or self-care (01) ==
LOC: C.LABMFLN 08:27
PROVIDERS: ATTEND Internal Medicine Hematology & Oncology
DX: C50.511 Malignant neoplasm of lower-outer quadrant of right female breast (principal)

== ENCOUNTER → 2017-12-02 | Outpatient (CLI) | payer OTHER ==
[2017-12-02 12:38] LABS: BASO % 0.2 %; BASO ABS # 0.01 K/uL (0-0.2); HEMOGLOBIN 12.8 g/dL (12.0-16.0); IG# 0.01 K/uL (0.00-0.02); LYMPH ABS # 1.03 K/uL (1.2-3.4); MEAN CELL VOLUME 91.5 fL (80-100); MEAN CORPUSCULAR HEMOGLOBIN 29.3 pg (25-34); MEAN PLATELET VOLUME 9.2 fL (7.4-10.4); MONO % 6.9 %; MONO ABS # 0.34 K/uL (0.11-0.59); NEUT % 69.7 %; NEUT ABS # 3.42 K/uL (1.4-6.5); PLATELET COUNT 165 K/uL (130-400); RED CELL DISTRIBUTION WIDTH CV 15.2 % (11.5-14.5); RED CELL DISTRIBUTION WIDTH SD 51.2 fL (36.4-46.3); WHITE BLOOD COUNT 4.91 K/uL (4.8-10.8)
[2017-12-02 13:48] LABS: ALBUMIN 3.6 gm/dl (3.4-5.0); ALKALINE PHOSPHATASE 117 U/L (45-117); ALT/SGPT 9 U/L (12-78); AST/SGOT 14 U/L (15-37); BLOOD UREA NITROGEN 17 mg/dl (7-18); CALCIUM 8.8 mg/dl (8.5-10.1); CARBON DIOXIDE 28 mmol/L (21-32); CREATININE 1.54 mg/dl (0.60-1.20); GLUCOSE 89 mg/dl (70-99); POTASSIUM 3.9 mmol/L (3.5-5.1); SODIUM 142 mmol/L (136-145); TOTAL PROTEIN 6.7 gm/dl (6.4-8.2)
== END | disposition home or self-care (01) ==
LOC: C.LABMFLN 07:27
PROVIDERS: ATTEND Internal Medicine Hematology & Oncology
DX: C50.511 Malignant neoplasm of lower-outer quadrant of right female breast (principal)

== ENCOUNTER 2018-10-01 05:43 | Inpatient (IN) ==
--- NOTE | 2018-09-18 12:50 | Anesthesiology Consultation ---
Date of Service September 18, 2018 Assessment & Plan (1) Encounter for pre-operative examination: - Preop EKG done 09/01/18 for EBUS, navigational bronch (done 09/09/18) noting TWA, consider anterior ischemia. This was reviewed by cardio: With regards to abnormal EKG, ECHO ordered. "She is completely asymptomatic from a cardiac standpoint and therefore stress testing is not recommended at this time.. she is able to achieve greater than 4 METS without exertional symptoms such as angina or dyspnea. Therefore she appears to be low cardiac risk for upcoming pulmonary procedure. If she is found to have significantly reduced LV systolic function, she would be a higher risk for arrhythmia and further diagnostic studies will be indicated early from a cardiac perspective, although they may not necessarily delay her pulmonary work-up for her mass." ECHO done 09/08/18 (results in testing section of document). - S/P EBUS, navigational bronch: 09/09/18: Grade 1 view, MAC 3, ETT 8.5 at [facility] - Check coags AM DOS Chart Review Chart Review: Acceptable Risk for Surgery and Patient NOT seen in Pre Admission Testing History Surgery Operation Date: 10/01/18 11:30 Proposed Procedures p Right Robotic Video Assisted Thoracoscopy with Right Lower Lobe Wedge Resection, Possible Right Lower Lobectomy with mediastinal Lymphadenectomy - Ata Brewer MD, FACS Height/Weight Height: 5 ft 6 in Weight: 82.554 kg Allergies Allergy/AdvReac Type Severity Reaction Status Date / Time Estrogens Allergy Severe ORAL Verified 09/18/18 09:07 CONTRACEPTIVE- DVT Medications Home Medications Medication Instructions Recorded Confirmed Last Taken anastrozole 1 mg PO DAILY 08/25/18 09/18/18 Unknown cholecalciferol (vitamin D3) 2,000 unit PO QAM 08/25/18 09/18/18 Unknown [Vitamin D3] methimazole 10 mg PO QAM 08/25/18 09/18/18 Unknown metoprolol tartrate 50 mg PO BID 08/25/18 09/18/18 Unknown warfarin 5 mg PO UD 08/25/18 09/18/18 Unknown alendronate [Fosamax] 70 mg PO WK 09/18/18 09/18/18 Unknown Past Medical History Medical History CKD (chronic kidney disease) Osteoporosis Cancer RIGHT BREAST S/P CHEMO- ON ANASTROZOLE Deep vein thrombosis INITIAL DVT AT AGE 27; NO FURTHER DETAILS= ON COUMADIN Hyperlipidemia Hypertension Hyperthyroidism ON METHIMAZOLE Migraine HX Osteoarthritis Sleep apnea NO DEVICE Past Surgical History Surgical History History of bronchoscopy 08/2018 [facility] History of cataract surgery RIGHT/LEFT History of cholecystectomy History of colonoscopy History of esophagogastroduodenoscopy (EGD) History of open reduction and internal fixation (ORIF) procedure RIGHT ANKLE History of tooth extraction Hx of lumpectomy RIGHT Social History Smoking Status: Never smoker Do You Dip or Chew Tobacco: No Hx Alcohol Use: No Hx Substance Use: No substance use type: does not use Testing Laboratory Results 09/17/18 WBC 5.60 H/H 14.2/42.4 PLATELETS 140 SODIUM 140 POTASSIUM 4.4 CHLORIDE 108 CO2 27 BUN 15 CREATININE 1.4 GLUCOSE 94 09/17/18 PT 25.8 PTT 2.7 07/14/18 TSH 1.260 Electrocardiogram Date: 09/01/18 SB at 49bpm. TWA, consider anterior ischemia. Chest X-Ray Date: 09/09/18 Findings: + NAD Echocardiogram Date: 09/08/18 EF 60-65%. No RWMA. Mild cLVH. AV sclerosis. Mild AR. Grade I DD. Borderline LA E. Other Testing Chest CT: 08/13/18: Cystic consolidation in the posterior basal right lower lobe. Given the presence of punctate internal calcification, differential considerations include cicatrizing atelectasis related to chronic aspiration or other chronic inflammatory etiologies. However, an underlying mass is not excluded.
[2018-10-01] MEDS ORDERED: LR 15ML/HR IV SCH (06:00)
[2018-10-01 06:32] LABS: INR 1.5 (0.9-1.1); Partial Thromboplastin Ratio 1.1; Partial Thromboplastin Time 29.9 Seconds (21.0-31.0); Prothrombin Time 15.1 Seconds (9.0-12.0)
[2018-10-01] MEDS ORDERED: ATROPINE SULFATE 0.1 MG/ML 10ML SYR IV PRN ×2 (06:43→12:45)
[2018-10-01] MEDS ORDERED: ePHEDrine sulfate 50 MG/ML AMP IV PRN ×2 (06:43→12:46)
[2018-10-01] MEDS ORDERED: fentaNYL citrate 100 MCG/2 ML VIAL IV PRN (06:43)
[2018-10-01] MEDS ORDERED: ONDANSETRON INJ 2 MG/ML 2 ML VIAL IV PRN ×3 (06:43→13:34)
[2018-10-01] MEDS ORDERED: fentaNYL citrate 100 MCG/2 ML VIAL ONE ×2 (06:49→12:37)
--- NOTE | 2018-10-01 07:02 | History & Physical Bridge Note ---
Date of Service October 01, 2018 History & Physical Bridge Note I have examined the patient, reviewed the History & Physical and in the interval since the performance of the History & Physical I have noted the following changes of clinical significance: no changes noted
[2018-10-01] MEDS ORDERED: SODIUM CHLORIDE 0.9% PF 50 ML VIAL ONE (07:07)
[2018-10-01] MEDS ORDERED: BUPIVACAINE LIPOSOME 1.3% 266 MG/20 ML VIAL ONE (07:07)
[2018-10-01] MEDS ORDERED: BUPIVACAINE 0.5 % 5 MG/1 ML MPF 30ML VIAL ONE (07:07)
[2018-10-01] MEDS ORDERED: GLYCOPYRROLATE 0.2 MG/ML VIAL ONE ×2 (08:36→12:46)
[2018-10-01] MEDS ORDERED: PROPOFOL IV EMULSION 10 MG/ML 20 ML VIAL IV ONE (08:36)
[2018-10-01] MEDS ORDERED: NEOSTIGMINE METHYLSULFATE 5 MG/5 ML SYR ONE (08:36)
[2018-10-01] MEDS ORDERED: ONDANSETRON INJ 2 MG/ML 2 ML VIAL ONE (08:36)
[2018-10-01] MEDS ORDERED: ROCURONIUM BROMIDE 10 MG/ML 5 ML VIAL ONE (08:36)
[2018-10-01] MEDS ORDERED: LIDOCAINE HCL 2% 2 ML VIAL/AMP(20MG/ML) INFIL ONE (08:36)
[2018-10-01] MEDS ORDERED: DEXAMETHASONE SOD INJ 4 MG/ML VIAL ONE (08:36)
[2018-10-01] MEDS ORDERED: CEFAZOLIN 2000MG 2,000 MG/15 ML SYR IV ONE (08:37)
[2018-10-01] MEDS ORDERED: CEFAZOLIN 250 MG/ML 1 GM VIAL ONE (09:10)
[2018-10-01] MEDS ORDERED: ePHEDrine sulfate 50 MG/ML SYR ONE (09:52)
--- NOTE | 2018-10-01 10:42 | Post Operative Brief Note ---
Immediate Post Op Note v1 Date of Surgery October 01, 2018 Pre & Post Diagnosis Operation Date: 10/01/18 07:30 Pre-Op Diagnosis: Right Lung Nodule Post-Op Diagnosis: Carcinoma right lower lobe of lung Procedure Operation Date: 10/01/18 07:30 Actual Procedures p Right Robotic Video Assisted Thoracoscopy with Right Lower Lobe Wedge Resection,Right Lower Lobectomy with mediastinal Lymphadenectomy(Right) - Ata Brewer MD, FACS Surgeon Ata Brewer MD, FACS Radiology Equipment Servicer Adrianna PHILLIP Estimated Blood Loss 30 Findings Consistent with Post-Op Diagnosis Drains Chest Tube and Polk Catheter
[2018-10-01] MEDS ORDERED: METOCLOPRAMIDE HCL INJ 5 MG/ML 2 ML VIAL IV ONE (11:05)
[2018-10-01] MEDS ORDERED: METOCLOPRAMIDE HCL INJ 5 MG/ML 2 ML VIAL ONE (11:05)
--- NOTE | 2018-10-01 11:56 | Anesthesiology Progress Note ---
Date of Service October 01, 2018 Anesthesia Post Procedure Vital Signs Vital Signs: Temp Pulse Resp BP Pulse Ox 10/01/18 11:51 97.9 F 10/01/18 11:40 54 L 18 157/77 H 100 10/01/18 11:30 53 L 19 167/79 H 100 10/01/18 11:20 55 L 22 149/78 H 100 10/01/18 11:10 61 20 151/80 H 100 10/01/18 11:04 97.2 F L 73 16 125/69 100 10/01/18 06:11 97.7 F 48 L 20 161/63 H 99 Pain Intensity Right Chest: Pain Intensity: 0 Transfer of Care Handoff Completed per policy Notes Mental Status: alert / awake / arousable and participated in evaluation Patient Amnestic to Procedure: Yes Nausea / Vomiting: adequately controlled Pain: adequately controlled Airway Patency, RR, SpO2: stable & adequate BP & HR: stable & adequate Hydration State: stable & adequate Anesthetic Complications: no major complications apparent and Pt Satisfied with anesthetic care
--- NOTE | 2018-10-01 12:06 | XRay Report ---
XR chest 1V portable HISTORY: Postop. Right lower lobectomy. COMPARISON: Chest 09/09/2018. FINDINGS: Right chest tube terminates in the right lung apex. Suspect a tiny right apical pneumothora x. Right chest wall subcutaneous emphysema is noted. There is also a small amount of right-sided pneu momediastinum. This is likely post surgical. Left subclavian Port-A-Cath is unchanged in position. Em physema. A few bibasilar linear densities suggesting atelectasis. The heart remains enlarged. Progres sive right hilar density is also likely due to the postoperative change. Mild volume loss within the right hemithorax. IMPRESSION: 1. Expected postoperative changes right hemithorax as described above including a tiny pneumothorax a nd a small amount of pneumomediastinum. 2. Right chest tube terminates in the right lung apex. 3. Stable mild cardiomegaly. Electronically signed by: Eduardo Rios M.D. 10/01/2018 12:04 PM
[2018-10-01] MEDS: fentaNYL citrate 100 MCG/2 ML VIAL IV PRN ×4 (12:39→12:55)
[2018-10-01] MEDS ORDERED: OXYCODONE HCL IR 5 MG TAB (IMMEDIATE RELEASE) PO PRN (13:34)
[2018-10-01] MEDS ORDERED: METOCLOPRAMIDE HCL INJ 5 MG/ML 2 ML VIAL IV STA (13:34)
[2018-10-01] MEDS ORDERED: MoRPHine SULFATE 2 MG/ML CARP IV PRN (13:34)
[2018-10-01] MEDS ORDERED: D5W AND 1/2NSS 1,000 ML IV SCH (13:40)
[2018-10-01] MEDS: ACETAMINOPHEN 1,000 MG/100 ML VIAL IV SCH ×2 (14:25→22:15)
[2018-10-01] MEDS: METOCLOPRAMIDE HCL 10 MG in SYRINGE 0 ML IV SCH (17:57)
[2018-10-01] MEDS ORDERED: PROCHLORPERAZINE 10 MG in SYRINGE 8 ML IV SCH (18:00)
[2018-10-01] MEDS: METOPROLOL TARTRATE 50 MG TAB PO SCH (20:01)
[2018-10-01] MEDS: DOCUSATE SODIUM 100 MG CAP PO SCH (20:01)
--- NOTE | 2018-10-01 22:03 | Operative Report ---
DATE OF OPERATION: 10/01/2018 PREOPERATIVE DIAGNOSIS: Mass, right lower lobe. POSTOPERATIVE DIAGNOSIS: Adenocarcinoma, right lower lobe. PROCEDURE: 1. Robot-assisted thoracoscopic right lower lobe wedge resection with frozen section. 2. Robot-assisted thoracoscopic right lower lobectomy. 3. Robot-assisted thoracoscopic mediastinal lymphadenectomy. SURGEON: Ata Brewer MD FABRIC AWNING REPAIRER: KENJI Brice. (MrFaith Anne was present for the entire case and was instrumental as he was at the patient's bedside while I was at the console and he closed the incisions at the end). ANESTHESIA: General anesthesia, endotracheal intubation using double lumen tube. INDICATIONS FOR PROCEDURE AND FINDINGS: Bree Weller is a 73-year-old female who has had a slow growing mass in her right lower lobe. We performed electromagnetic navigational bronchoscopy as well as an endobronchial ultrasound to sample her mediastinal nodes and saw no evidence of malignancy. However, I was uncomfortable with this. I told her, I felt that we should wedge this out. After a long discussion, we elected to proceed with a wedge resection frozen section, possible lobectomy. On 10/01/2018, the patient underwent an uncomplicated robot-assisted thoracoscopic wedge resection of the lower lobe. 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 We did a robot-assisted thoracoscopic right lower lobectomy and a mediastinal lymphadenectomy. She tolerated it well, had no air leak at the conclusion of the case. Blood loss was negligible and she was extubated in the room. DESCRIPTION OF THE PROCEDURE: The patient brought to Operating Room and laid in supine position. General anesthesia induced. Endotracheal intubation performed with a double lumen tube. Monitoring lines were placed and tube and the patient was placed in the left lateral decubitus position, right chest prepped and draped in usual sterile fashion. After appropriate timeout had been called and antibiotics given, one lung ventilation ensued. I placed a 5 mm Thoracoport just over the 9th rib just a bit anterior to mid axillary line and we could see we were in the pleural cavity and carbon dioxide was insufflated. The patient had no adhesions and had fairly good fissures. We then placed a 5 mm port posteriorly at about the eighth interspace and then put another 8-mm port between the camera port and this posterior port. We then placed another 8 mm port anteriorly about the seventh interspace. An accounting manager assistant controller's port was placed anteriorly just above that the diaphragm. Exparel 266 mg in 20 mL of solution were mixed with 30 mL of 0.5% bupivacaine and 250 mL of normal saline. This was used to anesthetize each of the port sites prior to making incision and then we used it to perform an intercostal block from the 2nd to the 11th rib under thoracoscopic guidance. This filled the interspaces nicely. I then had to take down some flimsy adhesions between the right lower lobe and the diaphragm. After taking all these down we can see an obviously abnormal area of the right lower lobe. This was lifted up and I performed a generous wedge resection using Endo-KOSTA staplers. This was handed off the field in an Endobag. While waiting for the frozen section to come back, I took down the posterior pleura. We biopsied a level 7, 8, 9 nodes and cleaned out the level 7. I identified the bronchus quite nicely. I then went up under the azygos vein and biopsied the level 10 node and then the level 2 and 4 nodes. Bleeding was controlled with cautery. Back down we had taken down the inferior pulmonary ligament and cleaned off the vein quite nicely posteriorly and anteriorly. I dissected out the mainstem bronchus at the bifurcation of the upper lobe bronchus and the bronchus intermedius. I removed the level 11 node. We were able to identify the A3 segment of the pulmonary artery on the right. After we had freed this up nicely attention was then turned towards the fissure. I was actually able to separate the anterior fissure using just the cautery. I was able to find a line between the upper and lower lobes and this with the cautery. This was meticulously done, but we had no evidence of any parenchymal damage after this. This opened up things nicely and we dissected out the superior aspect to the inferior pulmonary vein nicely. We identified the veins draining the middle lobe. We dissected this out. We easily identified the right middle lobe bronchus and then the bronchus to the lower lobe. I biopsied these nodes also. We took out nodes anterior to this and identified the artery quite nicely. We then identified the branch to the middle lobe. Attention was then turned posteriorly and after we dissected out the artery nicely. I then went lateral and posterior and we completed the posterior fissure using the Endo-KOSTA stapler. This nicely freed up things and after the frozen section did come back as representing adenocarcinoma we divided the pulmonary artery using the Endo-KOSTA stapler. We then divided the bronchus just below the takeoff of the middle lobe bronchus. We then divided the inferior pulmonary vein. The specimen was placed in an Endobag and taken out through the accounting manager assistant controller's port, which we had to enlarge a bit. A 3-0 Vicryl on a V-Loc was used to close the fascia of the assistance port. We then used 0 Vicryl to close the camera port and the mid axillary line. We had the frozen section of the margin showed this to have clean margins. A 24-Chinese chest tube was placed just in the camera port just above the rib and directed towards the apex and held in place with heavy silk suture. A 4-0 Monocryl was used in running subcuticular fashion to approximate the wound edges. There was no air leak. The patient tolerated well, was transferred back to the Postanesthesia Care Unit in stable condition. I attest to the content of the Intraoperative Record and any orders documented therein. Any exceptions are noted below. SARAHD
[2018-10-02] MEDS: METOCLOPRAMIDE HCL 10 MG in SYRINGE 0 ML IV SCH ×2 (02:15→09:15)
[2018-10-02] MEDS: ACETAMINOPHEN 1,000 MG/100 ML VIAL IV SCH (06:07)
[2018-10-02 06:19] LABS: Eosinophils # (auto) 0.02 K/uL (0-0.5); Eosinophils % (auto) 0.3 %; Hematocrit (blood only) 37.7 % (37-47); Hemoglobin 12.5 g/dL (12.0-16.0); Immature Granulocytes # (auto) 0.01 K/uL (0.00-0.02); Immature Granulocytes % (auto) 0.2 %; Lymphocytes # (auto) 0.51 K/uL (1.2-3.4); Lymphocytes % (auto) 8.2 %; Mean Corpuscular Volume 88.3 fL (80-100); Mean Platelet Volume 8.7 fL (7.4-10.4); Monocytes # (auto) 0.47 K/uL (0.11-0.59); Monocytes % (auto) 7.6 %; Neutrophils # (auto) 5.21 K/uL (1.4-6.5); Neutrophils % (auto) 83.7 %; Platelet Count 130 K/uL (130-400); RDW Coefficient of Variation 14.7 % (11.5-14.5); RDW Standard Deviation 47.2 fL (36.4-46.3); Red Blood Count 4.27 M/uL (4.2-5.4); White Blood Count 6.22 K/uL (4.8-10.8)
[2018-10-02 06:20] LABS: Mean Corpuscular Hgb Conc 33.2 g/dL (32-36)
[2018-10-02 06:37] LABS: BUN Creatinine Ratio 11.6 (10-20); Calcium 8.5 mg/dl (8.5-10.1); Creatinine Clr Calc Pharmacy 39.9 ml/min; Est GFR (African American) 46.5; Est GFR (Non-African American) 40.1; Potassium 4.9 mmol/L (3.5-5.1)
--- NOTE | 2018-10-02 07:04 | Progress Note ---
DATE: 10/02/2018 Ms. Weller is now 1 day status post robot-assisted thoracoscopic right lower lobectomy for an adenocarcinoma. She looks great. She has no air leak. She is on room air. She has been ambulating. Her pain control is excellent. We will remove her chest tube and let her go home tomorrow morning in all likelihood. She did satisfactory postop course.
--- NOTE | 2018-10-02 07:25 | XRay Report ---
XR chest 1V portable HISTORY: Right lower lobectomy. Postop. COMPARISON: Chest 10/01/2018. FINDINGS: Right chest tube terminates in the right lung apex. Tiny right apical pneumothorax persists . Pneumomediastinum has improved. Right chest wall subcutaneous emphysema is again noted. The heart r emains mildly enlarged. Left subclavian Port-A-Cath is unchanged in position. IMPRESSION: Postoperative changes again noted within the right hemithorax with a tiny right apical pneumothorax r emaining. Electronically signed by: Eduardo Rios M.D. 10/02/2018 7:24 AM
[2018-10-02] MEDS: ACETAMINOPHEN 325 MG TAB PO SCH ×3 (08:05→17:44)
[2018-10-02] MEDS: DOCUSATE SODIUM 100 MG CAP PO SCH ×2 (08:10→20:09)
[2018-10-02] MEDS: METOPROLOL TARTRATE 50 MG TAB PO SCH ×2 (08:10→20:11)
[2018-10-02] MEDS: methIMAzole 5 MG TABLET PO SCH (08:10)
[2018-10-02] MEDS: ENOXAPARIN INJ 40 MG/0.4 ML SYR SQ SCH (08:10)
[2018-10-02] MEDS: ANASTROZOLE 1 MG TAB PO SCH (09:08)
[2018-10-02] MEDS: CHOLECALCIFEROL 1,000 UNITS TAB PO SCH (09:08)
--- NOTE | 2018-10-02 11:59 | Surgery Progress Note ---
Date of Service October 02, 2018 Assessment & Plan (1) Non-small cell cancer of right lung: -pt. is POD #1 Robotic RLL -chest tube has no air leak -CXR shows only a small apical right pneumothorax -CT will remain in place today -continue pain control measures -encourage mobilization, coughing, deep breathing, use of IS --lovenox in place for DVT prevention Subjective Pt. denies SOB. She notes discomfort from chest tube. She denies N/V and is tolerating small amounts of food. She is voiding without difficulty. She has ambulated in hallway. Discussed with RN and no additional concerns noted. Physical Exam Constitutional: well developed and well nourished; no acute distress Respiratory: BS are decrease at bases, R>L Cardiovascular: Rate/Rhythm: regular rhythm Musculoskeletal: no calf tenderness Results & Data Vital Signs (Past 12 Hours) Vital Signs Temp Pulse Resp BP Pulse Ox 10/02/18 07:41 36.6 C 67 16 123/75 94 10/02/18 04:40 94 10/02/18 04:25 36.9 C 66 16 131/76 97 10/02/18 00:25 36.8 C 72 16 130/77 96
[2018-10-03] MEDS: ACETAMINOPHEN 325 MG TAB PO SCH ×2 (00:22→05:35)
--- NOTE | 2018-10-03 07:16 | XRay Report ---
XR chest 1V portable HISTORY: Postop. Right lower lobectomy. COMPARISON: Chest 10/02/2018. FINDINGS: Right-sided chest tube terminates in the right lung apex. A tiny right apical pneumothorax persists. Right chest wall subcutaneous emphysema is again noted. The heart remains enlarged. A left subclavian Port-A-Cath is unchanged in position. No new focal lung consolidations. No evidence for pu lmonary edema. IMPRESSION: Postoperative changes again noted within the right hemithorax with a tiny right apical pneumothorax r emaining. Electronically signed by: Eduardo Rios M.D. 10/03/2018 7:15 AM
--- NOTE | 2018-10-03 07:42 | XRay Report ---
XR chest 1V portable HISTORY: 73 years-old Female tube removal status post removal of right-sided chest tube COMPARISON: Chest radiograph of same day at 6:54 AM TECHNIQUE: Portable AP view of the chest FINDINGS: Postoperative changes of the right lung redemonstrated. Tiny right-sided pneumothorax redemonstrated, pleural separation of approximately 5 mm status post removal of right-sided chest tube. Persistent s ubcutaneous emphysema about the right lateral chest wall. Cardiomegaly. Stable positioning of left juárez bclavian [id number]-Ludr catheter. Left lung is clear. No overt pulmonary edema. Degenerative changes o f the shoulders and spine. IMPRESSION: 1. Postoperative changes of the right lung redemonstrated. 2. Status post removal of the right-sided chest tube. Tiny right sided pneumothorax persists. The above report was generated using voice recognition software. It may contain grammatical, syntax o r spelling errors. Electronically signed by: Arnulfo Gonzales M.D. 10/03/2018 7:40 AM
[2018-10-03] MEDS: ANASTROZOLE 1 MG TAB PO SCH (08:02)
[2018-10-03] MEDS: methIMAzole 5 MG TABLET PO SCH (08:02)
[2018-10-03] MEDS: METOPROLOL TARTRATE 50 MG TAB PO SCH (08:02)
[2018-10-03] MEDS: CHOLECALCIFEROL 1,000 UNITS TAB PO SCH (08:02)
[2018-10-03] MEDS: DOCUSATE SODIUM 100 MG CAP PO SCH (08:02)
[2018-10-03] MEDS: ENOXAPARIN INJ 40 MG/0.4 ML SYR SQ SCH (08:03)
--- NOTE | 2018-10-03 09:10 | Discharge Summary ---
ADMISSION DIAGNOSIS: Mass of the lung in the right lower lobe. 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 HOSPITAL COURSE: This is a 73-year-old female who was seen and evaluated by Dr. Brewer as an outpatient secondary to a right lung mass. Dr. Brewer had previously performed an endobronchial ultrasound as well as a navigational bronchoscopy with biopsies on September 09 of this year which was nondiagnostic. He therefore admitted the patient to the hospital on 10/01/2018 and took the patient to the operating room where he performed a robotic-assisted thoracoscopic right lower lobe wedge resection, frozen resection revealed a nonsmall cell lung cancer, specifically adenocarcinoma. He then proceeded with a robot-assisted thoracoscopic right lower lobectomy and mediastinal lymphadenectomy. Pathology was reviewed prior to patient's discharge and was pending at this time; therefore, the final stage has not yet been determined. During the patient's postoperative course, she had an uneventful postoperative stay. Her chest tube was managed in the appropriate fashion and discontinued on postoperative day #2. A post-pull chest x-ray revealed only a tiny small right apical pneumothorax, which was felt to be of no consequence. The patient achieved adequate pain control, and while she was in the hospital, aggressive ambulation, incentive spirometer and pulmonary toilet were employed. She did not have any readily apparent complications postoperatively. It should be noted that the patient has a history of recurrent DVTs. She was maintained on prophylactic Lovenox during her postoperative course. Once her chest tube was discontinued, she was told that she could resume her Coumadin, which she takes at home as well as a full-dose Lovenox as a bridge until her INR is therapeutic. As her chest tube was pulled on postop day #2 and a post-pull chest x-ray was satisfactory, she was felt stable for discharge home on 10/03/2018. The patient was given written and verbal instructions. She was told to ambulate daily. She was told that she can remove her dressings in 3 days and shower thereafter, but not take any tub bath. She was told not to drive until cleared to do so by Dr. Brewer. Concerning followup, she will have a followup appointment in approximately 1 week with a chest x-ray prior to her appointment and our office will call her to verify date and time of this appointment. On final note, again the patient was told she can resume full anticoagulation upon return home and this is followed by her family physician, Dr. Valencia, who will assume care of her anticoagulation thereafter.
== END 2018-10-03 10:05 | disposition home or self-care (01) | DRG 164 ==
LOC: ASU 05:43 → 3W 13:32